=== PATIENT | male | born 1950 | race Two or more races ===

== ENCOUNTER 2018-10-09 19:47 | Inpatient (IN) | payer OTHER ==
[~2018-10-09] VITALS: Ht 172.7 cm; Wt 75.7 kg
--- NOTE | 2018-10-09 20:00 | NUR ---
started to code pt at 1945. CPR AND BAGGING INITIATED. PT INTUBATED ET secured. POSITIVE CO2 UPON EXPIRATION. BILAT LUNG SOUND HEARD. PLACED PT ON VENT ON NOTED SETTINGS. TOLD TO ADVANCE TUBE 1-2 CM. ADVANCED, RESCUED AT 24 CM LIP LINE ISELA. BS BILAT/EVEN SPO2 100%. WILL CONT TO MONITOR PT AND FOLLOW UP ON ORDERS.
--- NOTE | 2018-10-09 20:25 | NUR ---
MARINO FROM HOME. TO ER BED 11. PT IS UNCONSCIOUS, UNRESPONSIVE AND PULSELESS WITH CPR AND BAGGING ON GOING. PT WAS ORIGINALLY BROUGHT IN FOR SOB. PT ARRESTED PRIOR TO ARRIVAL. MD AT BEDSIDE. CPR CONTINUED. CODE BLUE INITIATED UPON PT ARRIVAL
[2018-10-09] MEDS ORDERED: PIPERACILLIN /TAZOBACTAM 3.375 G VIAL IV ONE (20:28)
[2018-10-09] MEDS ORDERED: IV NS 0.9% 1,000 ML BAG IV ONE (20:30)
[2018-10-09] MEDS ORDERED: PIPERACILLIN /TAZOBACTAM 3.375 G in IV D5W 50 ML IV ONE (20:30)
[2018-10-09] MEDS ORDERED: VANCOMYCIN 1 GM in IV D5W 250 ML IV ONE (20:30)
--- NOTE | 2018-10-09 20:35 | NUR ---
1944: TO ER BED 11. CODE BLUE STARTED - CPR AND BAGGGING INITITATED. PLACED ON MINITOR. NO PLULSE DETECTED. 1950: IO ACCESS OBTAINED ON L LOWER LEG 1951: EPINEPHRINE 1GM VIA IO. 1L NS STARTED ON IO 1954: PT INTUBATED ET 7.5 24 @ LIP. BILAT LUNG SOUND NO ABD GURGLING. NO CONFIRMED COLOR CHANGE ON CO2. REMOVED AND REATTEMPTED. 1957: REINTUBATED SUCCESSFULLY. NO RSI MED PROTOCOL USED. ET 7.5 26 AT LIP. POSITIVE CO2 UPON EXPIRATION. BILAT LUNG SOUND HEARD. NO GURGLING IN ABDOMEN. 2000: BI CARB GIVEN VIA IO 2002: CALCIUM 1GM VIA IO 2003: EPINEPHRINE 1MG VIA IO 2004: BI CARB GIVEN VIA IO 2007: EPINEPHRINE 1MG IO 2010: VS OBTAINED. CPR STOPED VS- HR: 121 BP: 64/45
[2018-10-09 20:43] LABS: BASOPHILS # (AUTO) 0.1 /CMM (0.0-0.2); BASOPHILS % (AUTO) 0.5 % (0.0-2.0); HEMOGLOBIN 13.4 g/dL (13.5-17.5); LYMPHOCYTES # (AUTO) 6.1 /CMM (0.8-4.8); MONOCYTES # (AUTO) 0.6 /CMM (0.1-1.30); WHITE BLOOD COUNT (AUTO) 11.5 K/uL (4.3-11.0)
--- NOTE | 2018-10-09 20:45 | NUR ---
CENTRAL LINE OBATINED ON R IJ 3 PAOLOS GABRIELE PICC NURSE
[2018-10-09 20:46] LABS: HEMATOCRIT 41 % (39-51); LYMPHOCYTES % (AUTO) 53.3 % (20.0-44.0); MEAN CORPUSCULAR HGB CONC 33 g/dl (31.0-36.0); MEAN CORPUSCULAR VOLUME 99 fL (80-96); MONOCYTES % (AUTO) 5.1 % (2.0-12.0); NEUTROPHILS # (AUTO) 4.6 /CMM (1.8-8.9); NEUTROPHILS % (AUTO) 40.1 % (43.0-81.0); PLATELET COUNT (AUTO) 94 /CMM (150-450); RED BLOOD CELL COUNT(AUTO) 4.16 MIL/uL (4.5-6.0)
[2018-10-09 20:52] LABS: CALCIUM, SERUM 11.2 mg/dL (8.5-10.1); CARBON DIOXIDE 19 mmol/L (21-32); CHLORIDE 99 mmol/L (98-107); CREATININE 1.8 mg/dL (0.6-1.3); GLUCOSE 307 mg/dL (74-106); POTASSIUM 3.1 mmol/L (3.5-5.1); SODIUM SERUM 139 mmol/L (136-145); UREA NITROGEN, BLOOD 12 mg/dL (7-18)
[2018-10-09 21:07] LABS: ALANINE AMINOTRANSFERASE 313 U/L (12-78); ALBUMIN 2.3 g/dL (3.4-5.0); ALCOHOL, BLOOD < 3 mg/dL (0-0); ALKALINE PHOSPHATASE 76 U/L (46-116); ASPARTATE AMINOTRANSFERASE 305 U/L (15-37); BILIRUBIN,DIRECT 0.2 mg/dL (0.0-0.2); BILIRUBIN,TOTAL 0.5 mg/dL (0.2-1.0); TOTAL PROTEIN, SERUM 5.6 g/dL (6.4-8.2)
[2018-10-09] MEDS ORDERED: VANCOMYCIN 1 GM VIAL ONE (21:14)
[2018-10-09 21:20] LABS: BAND % (MANUAL) 1 % (0.0-5.0); LYMPHOCYTES % (MANUAL) 41 % (16-48); MONOCYTES % (MANUAL) 5 % (0-11.0); NEUTROPHILS % (MANUAL) 51 (42-76); REACTIVE LYMPHOCYTES 2 % (0-0)
--- NOTE | 2018-10-09 21:21 | NUR ---
RT VERIFIED ET PLACEMENT 22 AT LIP. ADVANCE 2CM TO 24 AT LIP. RESP RATE INCREASED TO 20 BY RT
[2018-10-09] MEDS ORDERED: ONDANSETRON HCL/PF 4 MG/2 ML VIAL IVP PRN (21:30)
[2018-10-09] MEDS ORDERED: INSULIN REGULAR, HUMAN 100 UNIT/ML 3 ML VIAL SQ PRN ×2 (21:30)
[2018-10-09] MEDS ORDERED: MAGNESIUM HYDROXIDE 30 ML UDC PO PRN (21:30)
[2018-10-09] MEDS ORDERED: MAG HYDROX/AL HYDROX/SIMETH 30 ML UDC PO PRN (21:30)
[2018-10-09] MEDS ORDERED: DEXTROSE 50%-WATER 50 ML DISP.SYRIN IV PRN ×2 (21:30→23:30)
[2018-10-09] MEDS ORDERED: PROPOFOL 100 ML IV PRN (21:30)
[2018-10-09 21:31] LABS: ABG BASE EXCESS -18.3 mmol/L; ABG OXYGEN SATURATION 97.6 % (92.0-98.5); ABG PCO2 52.2 mmHg (35.0-45.0); ABG PO2 181.8 mmHg (75.0-100.0); COHb 0.3 % (0.5-1.5); MetHb 0.5 % (0.0-1.5); O2Hb 96.8 % (94.0-97.0); VT, ABG 500 mL
--- NOTE | 2018-10-09 21:35 | NUR ---
PPT NOTED STARTING TO WAKE UP. MD MADE AWARE. RECEIVED VERBAL ORDER FOR PROFOLOL PER PROTOCOL. STARTED ON RFA 20G @ 5MCG/KG/MIN PTS WEIGHT IS 84.6KG. BP @ 155/96 HR 133
--- NOTE | 2018-10-09 21:37 | NUR ---
PT VOMITTED STOMACH FOOD CONTENT MOD AMOUNT. SUCTIONING DONE
--- NOTE | 2018-10-09 21:50 | NUR ---
REPORT GIVEN TO GRETCHEN RYAN FOR MARNI PT GOING TO ICU 259
[2018-10-09 21:52] LABS: B-TYPE NATRIURETIC PEPTIDE 285 PG/ML (0-125)
--- NOTE | 2018-10-09 21:53 | NUR ---
CENTRAL VENOUS CATHETER INSERTION EMERGENT INSERTION, POST CARDIAC ARREST. PATIENT HAS ORDER TO INSERT CVC. INSERTION SITE DETERMINED TO BE RIGHT INTERNAL JUGULAR VEIN. patient was prepped using sterile technique with chlorhexidine. Patient was covered with a sterile drape and I donned a sterile gown. the insertion site was anesthetized with 1% lidocaine. Needle inserted under ultrasound guidance. Guidewire inserted through needle and needle removed. small kyleigh made at insertion site of approximately 2 mm. dilator inserted over guidewire then removed. catheter inserted over guidewire. guidewire removed. blood return at all 3 ports. valved caps placed on each port. catheter secured with 2 sutures. Biopatch placed and covered with Tegaderm. no s/s of complication. chest xray ordered. line positioned properly. INSERTED LENGTH 19 CM, EXTERNAL LENGTH 1 CM, TOTAL CATHETER LENGTH 20 CM.
--- NOTE | 2018-10-09 21:55 | NUR ---
PT TRANSPORTED TO UNIT ON GURNEY WITH RT, EMT, AUTO BODY CUSTOMIZER AND MEDICAL DEVICE SALES AT BEDSIDE. PT IS CRITICAL MONITORING EN ROUTE TO UNIT AND ACLS PROTOCOL OBSERVED
[2018-10-09] MEDS ORDERED: BLOOD SUGAR DIAGNOSTIC 1 EACH STRIP VI SCH (22:00)
--- NOTE | 2018-10-09 22:00 | NUR ---
PT ADMITTED FROM ER POST CARDIAC ARREST, PT IS NOW STARTING TO MOVE AND GAG ON ETT, WILL TITRATE PROPOFOL. PT IS IN SINUS TACH 130S. PICTURES TAKEN, SOME REDNESS ON HEELS, KNEES, AND SACRUM, WILL TURN AND REPOSITIONED Q2H AND OFFLOAD EXTREMITIES. PT IS ON NS @ 100 VIA RIGHT IJ TLC VERIFIED WITH CXR FOR PLACEMENT AND NO PNEUMOTHORAX. PT HAS NORTH CATHETER DRAINING MINIMAL CLOUDY URINE. PT HAS NGT TO LIS FOR COFFEE GROUND EMESIS. WILL CONTINUE TO MONITOR
[2018-10-09 22:05] VITALS: BP 134/73
[2018-10-09 22:14] LABS: THYROID STIMULATING HORMONE 8.137 uIU/mL (0.358-3.74)
[2018-10-09] MEDS: IV NS 0.9% 1,000 ML IV PRN (22:46)
[2018-10-09 23:00] VITALS: BP 148/97
--- NOTE | 2018-10-09 23:03 | NUR ---
Spoke with Dr. Coronel regarding pt critical lactic acid and pt condition. NGT placed and put to low intermittent suction for abdomen distention, tellez catheter inserted, and pt on accucheck q6 npo sliding scale. will continue to monitor
[2018-10-10] VITALS (54 sets, daily range): BP systolic 83–141; BP diastolic 51–97
[2018-10-10] MEDS: BLOOD SUGAR DIAGNOSTIC 1 EACH STRIP IN SCH ×4 (00:12→17:18)
--- NOTE | 2018-10-10 00:24 | NUR ---
Per Dr Coronel, no hypothermia protocol, will continue to monitor
[2018-10-10 01:56] LABS: ABG BASE EXCESS -9.6 mmol/L; ABG OXYGEN SATURATION 91.5 % (92.0-98.5); ABG PCO2 33.2 mmHg (35.0-45.0); ABG PH 7.293 (7.350-7.450); ABG PO2 70.5 mmHg (75.0-100.0); AaDO2 609.3 mmHg; COHb 0.6 % (0.5-1.5); MetHb 0.4 % (0.0-1.5); O2Hb 90.6 % (94.0-97.0); VT, ABG 500 mL
[2018-10-10] MEDS ORDERED: PIPERACILLIN /TAZOBACTAM 3.375 G VIAL IV ONE (02:26)
[2018-10-10] MEDS ORDERED: PIPERACILLIN /TAZOBACTAM 3.375 G in IV NS 0.9% 50 ML IV ONE (03:00)
[2018-10-10 04:45] LABS: BASOPHILS % (AUTO) 0.1 % (0.0-2.0); HEMATOCRIT 44 % (39-51); HEMOGLOBIN 14.9 g/dL (13.5-17.5); LYMPHOCYTES # (AUTO) 0.5 /CMM (0.8-4.8); LYMPHOCYTES % (AUTO) 3.7 % (20.0-44.0); MEAN CORPUSCULAR HGB CONC 34 g/dl (31.0-36.0); MEAN CORPUSCULAR VOLUME 94 fL (80-96); MONOCYTES # (AUTO) 0.5 /CMM (0.1-1.30); MONOCYTES % (AUTO) 4.1 % (2.0-12.0); NEUTROPHILS # (AUTO) 12.1 /CMM (1.8-8.9); NEUTROPHILS % (AUTO) 92.1 % (43.0-81.0); PLATELET COUNT (AUTO) 144 /CMM (150-450); RED BLOOD CELL COUNT(AUTO) 4.65 MIL/uL (4.5-6.0); WHITE BLOOD COUNT (AUTO) 13.1 K/uL (4.3-11.0)
[2018-10-10 04:48] LABS: CALCIUM, SERUM 8.9 mg/dL (8.5-10.1); CREATININE 2.3 mg/dL (0.6-1.3); MAGNESIUM 2.3 mg/dL (1.8-2.4); PHOSPHORUS 4.7 mg/dL (2.5-4.9); POTASSIUM 3.4 mmol/L (3.5-5.1)
[2018-10-10] MEDS: INSULIN REGULAR, HUMAN 100 UNIT/ML 3 ML VIAL SQ PRN ×2 (06:46→23:57)
[2018-10-10] MEDS: PROPOFOL 100 ML IV PRN ×3 (07:44→21:23)
--- NOTE | 2018-10-10 08:00 | NUR ---
RN NOTE: RECEIVED PATIENT IN BED, OBTUNDED, ON ETT 7.5 AND 24CM @THE LIP LEVEL. ON PROPOFOL 20MCG AND PATIENT WAS SEDATED. MECHANICAL VENTILATOR SATURATING 100% WITH CURRENT VENT SETTING. ON INDUSTRIAL ENERGY ENGINEER ST HR 103. AFEBRILE. SKIN WARM TO TOUCH. HOB ELEVATED. CALL LIGHT WITHIN REACH. NORTH CATHETER IN PLACED WITH YELLOW URINE DRAINING TO GRAVITY. BED ALARMED AND LOCKED AT ALL TIMES.
[2018-10-10] MEDS ORDERED: FENO145T35 PO (08:05)
[2018-10-10] MEDS ORDERED: FEE PK DOSING 1 MIN EA MC ONE (08:41)
--- NOTE | 2018-10-10 09:15 | NUR ---
INTAKE MAN OPENING NOTE RECEIVED PATIENT REPORT FROM WILLIAM GODINEZ FOR MARNI.PATIENT OBTUNDED.TRACH VENT DEPENDANT,INTUBATED.EET 7.5 24@LIP LEVEL.ON PROPOFOL 20MCG.TOLERATING SETTINGS ORDERED.NO SOB NO DISTRESS NOTED.IV LINES ARE INTACT AND PATENT.ON TELE MONITOR ST 104.SAFETY AND ASPIRATION PRECAUTIONS IN PLACE.ON INTERMITTENT OG TUBE SUCTION .DARK BROWNISH SECRETIONS .WILL CONTINUE TO MONITOR.
[2018-10-10] MEDS: PIPERACILLIN /TAZOBACTAM 3.375 G in IV D5W 100 ML IV SCH ×2 (09:23→17:18)
[2018-10-10] MEDS: IV NS 0.9% 1,000 ML IV PRN ×2 (09:32→21:49)
[2018-10-10] MEDS ORDERED: POTASSIUM CL. PREMIX PERIPHER. 50 ML IV SCH ×2 (09:34→12:30)
[2018-10-10] MEDS ORDERED: POTASSIUM CHLORIDE 10 MEQ/50 ML PREMIXED IVPB FOR PERIPHERAL LINE IV ONE (12:30)
--- NOTE | 2018-10-10 12:47 | NUR ---
BENEFIT AUTHORIZER NOTE RELAYED POSITIVE DVT RESULT TO ,GOT NEW ORDER FOR LOVENOX AND CARDIOLOGY WILL F/U IN AM.
[2018-10-10] MEDS: ENOXAPARIN SODIUM 80 MG/0.8 ML DISP.SYRIN SQ SCH ×2 (13:12→21:33)
[2018-10-10 14:19] LABS: APPEARANCE,URINE SL CLOUDY (CLEAR); BILIRUBIN,URINE NEGATIVE (NEGATIVE); BLOOD, URINE 3+ Ery/uL (NEGATIVE); COLOR,URINE YELLOW (YELLOW); KETONES,URINE TRACE (NEGATIVE); LEUKOCYTE ESTERASE ,URINE NEGATIVE (NEGATIVE); NITRITE, URINE NEGATIVE (NEGATIVE); PH,URINE 5.5 (5.0-8.0); PROTEIN,URINE 1+ mg/dl (NEGATIVE); UGLUCOSE NEGATIVE (NEGATIVE)
[2018-10-10 14:27] LABS: CREATININE, URINE 153.2 MG/DL (30.0-125.0)
[2018-10-10 14:44] LABS: BACTERIA,URINE Few /HPF (None Seen); CALCIUM OXALATE CRYSTALS,UR Few /HPF (None Seen); SQUAMOUS EPITHELIAL CELL,UR Few /HPF (None Seen); URIC ACID CRYSTALS,URINE Moderate /HPF (None Seen)
[2018-10-10] MEDS ORDERED: CALCIUM CHLORIDE 1,000 MG/10 ML DISP.SYRIN IV ONE (14:44)
[2018-10-10] MEDS ORDERED: SODIUM BICARBONATE SYR 50 MEQ/50 ML DISP.SYRIN IV ONE (14:44)
[2018-10-10] MEDS ORDERED: EPINEPHRINE (1:10,000) SYRINGE 1 MG/10 ML DISP.SYRIN IVP ONE (14:44)
[2018-10-10 14:45] LABS: URINE AMORPHOUS URATE Moderate /HPF (None Seen)
[2018-10-10 15:12] LABS: EOSINOPHIL,URINE None Seen
[2018-10-10] MEDS: ACETAMINOPHEN 325 MG TABLET PO PRN (17:18)
--- NOTE | 2018-10-10 18:52 | NUR ---
ACCOUNTING ASSOCIATE CLOSING NOTE .PATIENT OBTUNDED.TRACH VENT DEPENDANT,INTUBATED.ET 7.5 24@LIP LEVEL.TOLERATING SETTINGS ORDERED.NO SOB NO DISTRESS NOTED.IV LINES ARE INTACT AND PATENT.ON TELE MONITOR SR 98.SAFETY AND ASPIRATION PRECAUTIONS IN PLACE.ON INTERMITTENT OG TUBE SUCTION .DARK BROWNISH SECRETIONS .PATIENT HAS ELEVATED TEMP 101.1.PRN TYLENOL GIVEN WITH COOLING BLANKET. MADE AWARE.LEFT MESSAGE.LOVENOX DOSE CLARIFIED WITH PHARMACY .DOSE IS OK EVEN RENAL VALUES ARE HIGH .BECAUSE OF INDICATION OF THERAPY.WILL CONTINUE TO MONITOR.
--- NOTE | 2018-10-10 19:30 | NUR ---
ICU NOTES RECEIVED REPORT FROM DAY SHIFT R.N.PT INTUBATED,ON DIPRIVAN DRIP AT 20MCG/KG/MIN.VIA RT.IJ.MONITOR SHOWS NSR.
--- NOTE | 2018-10-10 20:11 | NUR ---
RECEIVED PT INTUBATED 7.5 ETT SECURED AT 24CM AT THE LIP VIA ANCHOR FAST. NO RESP DISTRESS, TOLERATING VENT SETTINGS. SX'D FOR SML AMT OF THIN WHITE SECRETIONS. VENT ALARMS SET AND AUDIBLE. AMBU BAG AT BEDSIDE. WILL CONTINUE TO MONITOR. Addendum: 10/10/18 at 2013 by CADE SHAH RT Amended: Links added.
[2018-10-10] MEDS ORDERED: VANCOMYCIN 1 GM in IV D5W 250 ML IV SCH (21:00)
--- NOTE | 2018-10-10 22:00 | NUR ---
ICU NOTES OROGASTRIC TUBE TO LOW INTERMITTENT SUCTION DRAINING COFFEE GROUND TO BROWN DRAINAGE.
[2018-10-11] VITALS (53 sets, daily range): BP systolic 73–130; BP diastolic 27–83
--- NOTE | 2018-10-11 | NUR ---
ICU NOTES REMAINS ON DIPRIVAN DRIP.VITAL SIGNS STABLE.MONITOR SHOWS NSR.REPOSITIONED AND TURNED.INCONTINENT OF SCANT AMOUNT BROWN STOOL
[2018-10-11] MEDS: BLOOD SUGAR DIAGNOSTIC 1 EACH STRIP IN SCH ×5 (00:07→23:46)
[2018-10-11] MEDS: PIPERACILLIN /TAZOBACTAM 3.375 G in IV D5W 100 ML IV SCH ×3 (00:55→17:09)
[2018-10-11] MEDS: PROPOFOL 100 ML IV PRN ×3 (04:21→20:45)
[2018-10-11 04:59] LABS: BASOPHILS % (AUTO) 0.2 % (0.0-2.0); EOSINOPHILS % (AUTO) 0.1 % (0.0-6.0); HEMATOCRIT 34 % (39-51); HEMOGLOBIN 12.1 g/dL (13.5-17.5); LYMPHOCYTES # (AUTO) 1.3 /CMM (0.8-4.8); LYMPHOCYTES % (AUTO) 8.6 % (20.0-44.0); MEAN CORPUSCULAR HGB CONC 36 g/dl (31.0-36.0); MEAN CORPUSCULAR VOLUME 92 fL (80-96); MONOCYTES # (AUTO) 0.7 /CMM (0.1-1.30); MONOCYTES % (AUTO) 4.8 % (2.0-12.0); NEUTROPHILS # (AUTO) 12.7 /CMM (1.8-8.9); NEUTROPHILS % (AUTO) 86.3 % (43.0-81.0); PLATELET COUNT (AUTO) 124 /CMM (150-450); RED BLOOD CELL COUNT(AUTO) 3.64 MIL/uL (4.5-6.0); WHITE BLOOD COUNT (AUTO) 14.7 K/uL (4.3-11.0)
[2018-10-11 05:02] LABS: CALCIUM, SERUM 8.1 mg/dL (8.5-10.1); CREATININE 2.8 mg/dL (0.6-1.3); MAGNESIUM 1.9 mg/dL (1.8-2.4); PHOSPHORUS 3.7 mg/dL (2.5-4.9); POTASSIUM 3.5 mmol/L (3.5-5.1)
--- NOTE | 2018-10-11 07:20 | NUR ---
BOX COVERER HAND INITIAL NOTES PT RECEIVED ON VENT AND TOLERATING SETTING SWELL. NO SOB OR ACUTE SIGNS IF DISTRESS NOTED. BREATHING IS EVEN AND UNLABORED. VSS AT THIS TIME. INVASIVE A CENTRAL LINE NOTED TO BE C/D/I. NO REDNESS OR SIGNS OF INFILTRATION NOTED. OG TUBE NOTED TO LIS. COFFEE GROUND CONTENTS NOTED. PLACEMENT VERIFIED VIA AUSCULTATION. F/C C/D/I AND DRAINING TO GRAVITY. BED IN LOW LOCKED POSITION, SIDE RAILS UP X2. WILL CONTINUE TO MONITOR
[2018-10-11] MEDS: ENOXAPARIN SODIUM 80 MG/0.8 ML DISP.SYRIN SQ SCH (08:56)
[2018-10-11 08:59] LABS: ALBUMIN 2.2 g/dL (3.4-5.0); BILIRUBIN,TOTAL 0.7 mg/dL (0.2-1.0); CALCIUM, SERUM 7.9 mg/dL (8.5-10.1); POTASSIUM 3.5 mmol/L (3.5-5.1); TOTAL PROTEIN, SERUM 5.4 g/dL (6.4-8.2)
[2018-10-11] MEDS ORDERED: PANTOPRAZOLE 40 MG VIAL IV SCH (10:30)
[2018-10-11] MEDS: NEXIUM 40 MG VIAL IV SCH ×2 (12:29→20:16)
[2018-10-11] MEDS ORDERED: HEPARIN INFUSION/D5W 500 ML IV PRN (12:30)
[2018-10-11] MEDS: ALBUMIN 25% 25 GM in PREMIX 1 EA IV SCH ×2 (12:46→18:11)
--- NOTE | 2018-10-11 13:00 | NUR ---
CROP GRAIN OR LIVESTOCK FARMER NOTES: PERSON TO CONTACT PT'S BROTHER RIYA MCCABE AT BEDSIDE. IDENTIFICATION CONFIRMED VIA CASINO ENFORCEMENT AGENT'S LICENSE. [phone]
--- NOTE | 2018-10-11 14:00 | NUR ---
CUSTOMER SERVICE ADVISOR NOTES: HEPARIN INFUSION ORDER NOTED FROM ENGINE OILER MAGANA TO BEGIN HEPARIN DRIP. ENGINE OILER MADE AWARE THAT COFFEE GROUND GASTRIC CONTENTS ARE STILL WITNESSED FROM OJ TUBE, ALONG WITH BLOOD TINGED SPUTUM WHEN PT IS SUCTIONED, AND PREVIOUS ADMINISTRATION OF SQ LOVENOX. PER ENGINE OILER "BEGIN THE INFUSION. NO BOLUS NEEDED AND ASSESS FOR ANY SIGNS OF BLEEDING".
[2018-10-11 14:17] LABS: IRON, SERUM 18 ug/dl (50-175); TOTAL IRON BINDING CAPACITY 176 ug/dl (250-450)
[2018-10-11 14:51] LABS: FERRITIN 2203 ng/mL (8-388)
[2018-10-11] MEDS: IV NS 0.9% 1,000 ML IV PRN (16:08)
[2018-10-11 17:27] LABS: OCCULT BLOOD STOOL POSITIVE (NEGATIVE)
--- NOTE | 2018-10-11 17:54 | NUR ---
RT END OF THE SHIFT REPORT, PT 67 Y OLD MALE REMAIN ORALLY INTUBATED ETT #7.5 @ 24 CM LIP LINE WITH NOTED SETTINGS, ALARMS ARE SET AND FUNCTIONAL, B/S BILATERALLY FINE, EQUAL CHEST RISE NOTED. MINIMAL SECRETIONS, HME CHANGED, CARBONATING STONE CLEANER DONE, NO CHANGES T/O DAY, AMBU BAG REMAIN AT THE BEDSIDE. PT. REMAIN STABLE AND FAMILY MEMBERS AT TH BEDSIDE. WILL CONTINUE TO MONITOR. Addendum: 10/11/18 at 1756 by NAYELY DORAN RT Amended: Links added.
--- NOTE | 2018-10-11 18:00 | NUR ---
PNEUMATIC JACKETER NOTES: INTENSIVE CARE UNIT REGISTERED NURSE RN NOTES (BENNY) INTENSIVE CARE UNIT REGISTERED NURSE AT BEDSIDE AND MADE AWARE OF PT'S CONDITION AND SUSTAINED TEMP DESPITE COOLING MEASURES. ORDER OBTAINED TO COLLECT SPUTUM CX. RT NOTIFIED TO CARRY OUT ORDER
[2018-10-11] MEDS: Z GUARD REMEDY 2 OZ OINT TP PRN (18:11)
[2018-10-11] MEDS: ACETAMINOPHEN 325 MG TABLET PO PRN (18:12)
[2018-10-11 18:26] LABS: HEMOGLOBIN 10.4 g/dL (13.5-17.5)
--- NOTE | 2018-10-11 18:41 | NUR ---
ROUTER TENDER NOTES: + OB STOOL PT SCHEDULED FRO EGD TOMORROW MORNING AT 10. KAI ROOFER APPLICATOR MADE AWARE OF PT'S CURRENT DROP IN H/H AND POSITIVE OB STOOL. ORDERS NOTED TO HOLD HEPARIN INFUSION
--- NOTE | 2018-10-11 18:51 | NUR ---
WEATHERIZATION CREW LEADER CLOSING NOTES PT REMAINS ON VENT AND TOLERATING SETTING WELL. NO SOB OR ACUTE SIGNS OF DISTRESS NOTED. BREATHING EVEN AND UNLABORED. HEPARIN DRIP STOPPED PER ENGINE SERVICE REPAIRER ORDER. NO OVERT SIGNS OF BLEEDING NOTED AT THIS TIME. INVASIVE LINE AND CENTRAL LINE REMAIN C/D/I. F/C REMAINS C/D/I AND DRAINING TO GRAVITY. HE REMAINS SR ON THE MONITOR. SAFETY MEASURES REMAIN IN PLACE. WILL ENDORSE TO NIGHTSHIFT RN FOR MARNI CALL PLACED TO PT'S BROTHER RIYA FOR EGD CONSENTS, HOWEVER UNABLE TO REACH HIM. VOICEMAIL LEFT
--- NOTE | 2018-10-11 23:05 | NUR ---
SKATING RINK ICE MAKER NOTE PATIENT IN BED OBTUNDED ABLE TO OPEN EYES UNABLE TO FOLLOW COMMANDS. PATIENT ON TOLERATED VENT SETTINGS BREATHING EVEN AND UNLABORED NO S/S OF RESP DISTRESS. PATIENT ON LOW INTERMITTENT SUCTION WITH BILIOUS DRAINAGE NOTED. NO S/S OF OVERT BREATHING. PATIENT TURNED AND REPOSITIONED ORAL CARE GIVEN. PATIENT NOTED TO HAVE MILD TEMP. COOLING BLANKET AND MEASURES IN PLACE. PATIENT F/C DRAINING TO GRAVITY NO S/S OF BLEEDING SAFETY PRECAUTIONS IN PLACE RN WILL CONTINUE TO MONITOR FOR CHANGES.
[2018-10-12] VITALS (37 sets, daily range): BP systolic 91–131; BP diastolic 50–78
[2018-10-12] MEDS: PIPERACILLIN /TAZOBACTAM 3.375 G in IV D5W 100 ML IV SCH ×3 (00:04→16:54)
[2018-10-12] MEDS: ALBUMIN 25% 25 GM in PREMIX 1 EA IV SCH (03:03)
[2018-10-12 04:50] LABS: BASOPHILS # (AUTO) 0.1 /CMM (0.0-0.2); BASOPHILS % (AUTO) 0.5 % (0.0-2.0); EOSINOPHILS % (AUTO) 0.8 % (0.0-6.0); HEMATOCRIT 26 % (39-51); HEMOGLOBIN 9.5 g/dL (13.5-17.5); LYMPHOCYTES # (AUTO) 1.3 /CMM (0.8-4.8); LYMPHOCYTES % (AUTO) 12.5 % (20.0-44.0); MEAN CORPUSCULAR HGB CONC 36 g/dl (31.0-36.0); MEAN CORPUSCULAR VOLUME 93 fL (80-96); MONOCYTES # (AUTO) 0.5 /CMM (0.1-1.30); MONOCYTES % (AUTO) 4.6 % (2.0-12.0); NEUTROPHILS # (AUTO) 8.6 /CMM (1.8-8.9); NEUTROPHILS % (AUTO) 81.6 % (43.0-81.0); PLATELET COUNT (AUTO) 119 /CMM (150-450); RED BLOOD CELL COUNT(AUTO) 2.83 MIL/uL (4.5-6.0); WHITE BLOOD COUNT (AUTO) 10.6 K/uL (4.3-11.0)
[2018-10-12 05:08] LABS: ALBUMIN 3.1 g/dL (3.4-5.0); BILIRUBIN,TOTAL 0.8 mg/dL (0.2-1.0); CALCIUM, SERUM 7.9 mg/dL (8.5-10.1); CREATININE 2.8 mg/dL (0.6-1.3); MAGNESIUM 2.2 mg/dL (1.8-2.4); PHOSPHORUS 3.5 mg/dL (2.5-4.9); POTASSIUM 3.3 mmol/L (3.5-5.1)
[2018-10-12] MEDS: PROPOFOL 100 ML IV PRN ×3 (05:42→22:38)
[2018-10-12] MEDS: IV NS 0.9% 1,000 ML IV PRN (06:10)
[2018-10-12] MEDS: BLOOD SUGAR DIAGNOSTIC 1 EACH STRIP IN SCH ×4 (06:10→23:52)
--- NOTE | 2018-10-12 06:52 | NUR ---
GAS DISPATCHER NOTE PATIENT TOLERATED THE NIGHT WELL. PATIENT REMAINED WITH MINOR FEVER ALL NIGHT, COOLING BLANKET AND MEASURES IN PLACE. PATIENT RIJ TLC PATENT INTACT NO S/S OF INFECTION/ INFILTRATION, PHLEBITIS. PATIENT TOLERATING VENT SETTINGS WELL NO S/S OF RESP DISTRESS. SPOKE TO OR REGARDING PATIENTS SCHEDULED EGD AT BEDSIDE AT 1000. RN WILL ENDORSE POC TO AM FOR MARNI.
--- NOTE | 2018-10-12 07:15 | NUR ---
COTTON BALER OPENING NOTE RECEIVED PATIENT REPORT FROM PM RN .PATIENT OBTUNDED.TRACH VENT DEPENDANT,INTUBATED.EET 7.5 24@LIP LEVEL.ON PROPOFOL 20MCG.TOLERATING SETTINGS ORDERED.NO SOB NO DISTRESS NOTED.IV LINES ARE INTACT AND PATENT.ON TELE MONITOR SR HR 96.SAFETY AND ASPIRATION PRECAUTIONS IN PLACE.ON INTERMITTENT OG TUBE SUCTION .GREENISH SECRETIONS .WILL CONTINUE TO MONITOR.
[2018-10-12] MEDS: NEXIUM 40 MG VIAL IV SCH ×2 (08:48→20:48)
[2018-10-12 08:53] LABS: ABG BASE EXCESS -2.5 mmol/L; ABG OXYGEN SATURATION 96.6 % (92.0-98.5); ABG PCO2 30.8 mmHg (35.0-45.0); ABG PH 7.448 (7.350-7.450); ABG PO2 99.3 mmHg (75.0-100.0); AaDO2 150.5 mmHg; COHb 0.3 % (0.5-1.5); MetHb 0.3 % (0.0-1.5); SITE, ABG Right Radial
[2018-10-12] MEDS ORDERED: ENOXAPARIN SODIUM 80 MG/0.8 ML DISP.SYRIN SQ SCH (09:00)
--- NOTE | 2018-10-12 09:30 | NUR ---
EMAIL MARKETING EXECUTIVE NOTE SEEN BY EBONIE GARRETT,UPDATED ABOUT PATIENT CONDITION.WILL F/U WITH FOR PLANNING OF IVC FILTER INSERTION.
--- NOTE | 2018-10-12 10:00 | NUR ---
ATTENDANT LODGING FACILITIES NOTE GOT CALL FROM ,UPDATED ABOUT PATIENT CONDITION.TOLD THAT DEPENDS ON EGD RESULT WILL PLAN IVC FILTER OR ANTICOAGULATION.
--- NOTE | 2018-10-12 10:00 | NUR ---
AUTOMOTIVE PRODUCTION WORKER NOTE SEEN BY ,TO START ON SEDATION VACATION.PATIENT WAS NOT TOLERATING TACHYPNEIC.PLACED BACK ON PROPOFOL.WILL CONTINUE TO MONITOR.
--- NOTE | 2018-10-12 10:45 | NUR ---
TRACK SWEEPER NOTE EGD DONE BY .PATIENT IS STABLE.NO ACUTE BLEEDING.FINDING WAS ESOPHAGITIS,GASTRITIS,DUODENITIS.RELAYED EGD RESULT TO [place] FARMER TAMI ,MADE AWARE RECOMMENDATION AND PLAN OF CARE.HE SAID HE WILL LET ME KNOW FURTHER PLANNING AFTER HE TALK TO .
[2018-10-12 13:22] LABS: HEMOGLOBIN 9.1 g/dL (13.5-17.5)
--- NOTE | 2018-10-12 13:30 | NUR ---
SKILLED HELPER NOTE SEEN BY ,UPDATED ABOUT PATIENT CONDITION,GOT NEW ORDER TO GIVE POTASSIUM 20MEQ IV .WILL CONTINUE TO MONITOR.
[2018-10-12] MEDS ORDERED: POTASSIUM CHLORIDE 10 MEQ/50 ML PREMIXED IVPB FOR PERIPHERAL LINE IV ONE (14:00)
[2018-10-12] MEDS: POTASSIUM CL. PREMIX PERIPHER. 50 ML IV SCH ×2 (14:25→15:35)
--- NOTE | 2018-10-12 14:56 | NUR ---
MARKET DEVELOPMENT TRAINER NOTE SPOKE TO ,IVC FILTER PLACEMENT ON 10/13/2018 @0630.AUTO BODY REPAIR ESTIMATOR TAMI MADE AWARE.SPOKE TO BROTHER RIYA OLIVER ,GOT CONSENT FOR PROCEDURE AND ANESTHESIA.WITNESSED BY BECKY GODINEZ. PER BROTHER HE DONT HAVE ANY OTHER FAMILY MEMBER TO MAKE DECISION FOR HIM.EITHER HE OR HIS YOUNGER BROTHER.
[2018-10-12] MEDS: ACETAMINOPHEN 325 MG TABLET PO PRN (16:55)
--- NOTE | 2018-10-12 18:12 | NUR ---
PERSONAL INJURY LAW SPECIALIST NOTE SEEN BY EBONIE QUINN,GOT NEW ORDER TO D/C INTERMITTENT OG TUBE SUCTION AND DIETITIAN CONSULT FOR TUBE FEEDING.UPDATED ABOUT PATIENT CONDITION.
--- NOTE | 2018-10-12 19:22 | NUR ---
LEGAL EXECUTIVE CLOSING NOTE .PATIENT OBTUNDED.OPEN EYES.TRACKS.TRACH VENT DEPENDANT,INTUBATED.EET 7.5 24@LIP LEVEL.ON PROPOFOL 15MCG.TOLERATING SETTINGS ORDERED.NO SOB NO DISTRESS NOTED.IV LINES ARE INTACT AND PATENT.ON TELE MONITOR SR HR 92.SAFETY AND ASPIRATION PRECAUTIONS IN PLACE.ENDORSED TO PM NURSE FOR MARNI.
--- NOTE | 2018-10-12 19:52 | NUR ---
REPAIRING CALIBRATOR OPENING NOTES RECEIVED REPORT FROM BARBARA GODINEZ. PATIENT OBTUNDED W/ ETT IN PLACE & TOLERATING VENT SETTINGS AC 20, TV 500, FIO2 40%, PEEP 5. NO RESPIRATORY DISTRESS NOTED, SATING WELL @ 99%. ON TELE W/ SINUS RHYTHM, HR 80S. LEFT & RIGHT WRIST IV #20 INTACT & PATENT, SALINE LOCKED & RIGHT TLC IJ W/ DRESSING CDI & ONGOING DIPRIVAN DRIP @ 15 MCG/HR. OG TUBE FLUSHING WELL W/ GTF @ THIS TIME D/T NPO STATUS. NORTH CATH DRAINING YELLOW URINE. NO S/S OF PAIN OR DISCOMFORT @ THIS TIME. SAFETY MEASURES IN PLACE W/ SIDE RAILS UP & BED ALARM ON. WILL CONTINUE TO MONITOR CLOSELY.
[2018-10-12 21:01] LABS: HEMOGLOBIN 9.4 g/dL (13.5-17.5)
[2018-10-12] MEDS: INSULIN REGULAR, HUMAN 100 UNIT/ML 3 ML VIAL SQ PRN (23:52)
[2018-10-13] VITALS (41 sets, daily range): BP systolic 95–162; BP diastolic 56–90
--- NOTE | 2018-10-13 00:06 | NUR ---
RECEIVED PT INTUBATED 7.5 ETT SECURED AT 24CM AT THE LIP VIA ANCHOR FAST ON MECHANICAL VENT WITH CHARTED SETTINGS. NO RESP DISTRESS NOTED. PT TOLERATING VENT SETTINGS WELL. SX DONE. VENT ALARMS SET AND AUDIBLE. AMBU BAG AT BEDSIDE. VENT PLUGGED INTO RED OUTLET. WILL CONTINUE TO MONITOR. Addendum: 10/13/18 at 0008 by DARLEEN MALONEY RT Amended: Links added.
[2018-10-13] MEDS: PIPERACILLIN /TAZOBACTAM 3.375 G in IV D5W 100 ML IV SCH ×3 (00:34→16:30)
[2018-10-13] MEDS: ACETAMINOPHEN 325 MG TABLET PO PRN (01:51)
[2018-10-13 04:33] LABS: BASOPHILS % (AUTO) 0.5 % (0.0-2.0); EOSINOPHILS % (AUTO) 3.3 % (0.0-6.0); HEMATOCRIT 27 % (39-51); HEMOGLOBIN 9.8 g/dL (13.5-17.5); LYMPHOCYTES # (AUTO) 0.9 /CMM (0.8-4.8); MEAN CORPUSCULAR HGB CONC 36 g/dl (31.0-36.0); MEAN CORPUSCULAR VOLUME 94 fL (80-96); MONOCYTES # (AUTO) 0.5 /CMM (0.1-1.30); MONOCYTES % (AUTO) 5.6 % (2.0-12.0); NEUTROPHILS # (AUTO) 6.8 /CMM (1.8-8.9); NEUTROPHILS % (AUTO) 79.6 % (43.0-81.0); PLATELET COUNT (AUTO) 144 /CMM (150-450); RED BLOOD CELL COUNT(AUTO) 2.93 MIL/uL (4.5-6.0); WHITE BLOOD COUNT (AUTO) 8.5 K/uL (4.3-11.0)
[2018-10-13 04:40] LABS: CALCIUM, SERUM 8.2 mg/dL (8.5-10.1); CREATININE 2.6 mg/dL (0.6-1.3); POTASSIUM 3.4 mmol/L (3.5-5.1)
[2018-10-13] MEDS: PROPOFOL 100 ML IV PRN ×5 (04:54→23:58)
[2018-10-13] MEDS: BLOOD SUGAR DIAGNOSTIC 1 EACH STRIP IN SCH ×4 (05:56→23:55)
[2018-10-13] MEDS: INSULIN REGULAR, HUMAN 100 UNIT/ML 3 ML VIAL SQ PRN (05:57)
[2018-10-13] MEDS ORDERED: ANESTHESIA TRAY IN PYXIS 1 EA TRAY MC ONE (06:35)
[2018-10-13] MEDS ORDERED: LIDOCAINE /MPF 1% VIAL 5 ML VIAL ONE ×2 (06:35→07:13)
[2018-10-13] MEDS ORDERED: HEPARIN SODIUM, PORCINE 1,000 UNIT/ML VIAL ONE (06:36)
[2018-10-13] MEDS ORDERED: MIDAZOLAM HCL 2 MG/2ML VIAL ONE (06:41)
[2018-10-13] MEDS ORDERED: FENTANYL PF 100MCG/2ML AMPUL ONE (06:41)
[2018-10-13] MEDS ORDERED: ROCURONIUM BROMIDE 50 MG/5 ML ONE (06:42)
[2018-10-13] MEDS ORDERED: FAMOTIDINE/PF INJ 20 MG/2 ML VIAL IV ONE (06:42)
[2018-10-13] MEDS ORDERED: IOHEXOL 50 ML IV ONE (07:17)
--- NOTE | 2018-10-13 07:37 | NUR ---
ICU/RN: S/P IVC Filter Placement Pt received from OR accompanied by Dr Byrd, anesthesiologist and OR staff. Pt received intubated, tachypneic, with O2 sat in 80's currently being bagged by RT. Pt repositioned and HOB elevated with gradual return to 100% saturation. Placed on mechanical vent 100 FiO2. Pt currently off Diprivan, resumed sedation at previous rate as ordered. R femoral IVC filter dressing C/D/I. Post-op orders from Dr Gill noted and carried out.
--- NOTE | 2018-10-13 08:15 | NUR ---
ICU/RN: Reza Thompson, BUZZSAW OPERATOR at bedside; updated on pt status. Informed of respiratory distress post-op, ABG pending. + corneal, gag, cough reflexes, currently sedated on Diprivan. Notified of bilat forearm rash. No new orders. Photographed and placed in chart.
[2018-10-13] MEDS: NEXIUM 40 MG VIAL IV SCH ×2 (08:20→21:02)
[2018-10-13 08:35] LABS: ABG BASE EXCESS -7.7 mmol/L; ABG OXYGEN SATURATION 98.4 % (92.0-98.5); ABG PCO2 45.7 mmHg (35.0-45.0); ABG PH 7.245 (7.350-7.450); ABG PO2 216.6 mmHg (75.0-100.0); AaDO2 450.7 mmHg; COHb 0.3 % (0.5-1.5); MetHb 0.7 % (0.0-1.5); O2Hb 97.4 % (94.0-97.0); SITE, ABG Left Brachial; VENT MODE, BG AC 20 500 100% +5
--- NOTE | 2018-10-13 09:00 | NUR ---
ICU/RN: Dr Claudine rebolledo; updated on pt status. ABGs reported by RT. Orders for vent changes noted and carried out. Unable to perform full neuro assessment on sedation vacation due to noted respiratory distress, increased WOB off Diprivan; unable to follow commands.
[2018-10-13] MEDS: POTASSIUM CL. PREMIX PERIPHER. 50 ML IV SCH ×2 (09:30→10:31)
[2018-10-13] MEDS: Z GUARD REMEDY 2 OZ OINT TP PRN (12:04)
--- NOTE | 2018-10-13 14:54 | NUR ---
RT NOTE: PER MD ORDER PUSHED ETT INWARD 2 CM. NO COMPLICATIONS NOTED. BILATERAL BS NOTED. ETT NOW @ 26 CM @ LIPLINE. Addendum: 10/13/18 at 1457 by MARII DASILVA RT Amended: Links added.
--- NOTE | 2018-10-13 15:30 | NUR ---
ICU/RN: Gradual temp increase noted up to 100.0F; bed bath given, cooling measures in place. Wound care rendered. Pt tolerated well.
[2018-10-13] MEDS: SUCRALFATE 1 G/10 ML UDC PO SCH ×2 (16:32→22:11)
[2018-10-13] MEDS: JEVITY 1.2 CAL 1,000 ML BOTTLE GT PRN (17:02)
--- NOTE | 2018-10-13 17:30 | NUR ---
ICU/RN: S/B Ria, PRINCIPAL ARCHITECT in for ID consult. Informed of T-max 100.0F, S/P IVC filter placement, bilat FA rash. Per PRINCIPAL ARCHITECT, "not infectious, not allergic reaction." Pt with hx of psoriasis.
--- NOTE | 2018-10-13 18:15 | NUR ---
ICU/RN: Kat, ANIMAL CARE SUPERVISOR at bedside for GI consult; updated on pt status. Currently on TF, no black tarry stools, coffee ground emesis; aspiration of OGT with bileous output.
[2018-10-13 18:46] LABS: HEMOGLOBIN 9.6 g/dL (13.5-17.5)
--- NOTE | 2018-10-13 19:00 | NUR ---
AIRFRAME AND POWERPLANT TECHNICIAN NOTES RECEIVED PATIENT ORALLY INTUBATED TO THE VENTILATOR ON AC MODE,NOT IN NAY DISTRESS, BREATHING NON LABORED,SEDATED WITH PROPOFOL DRIP . MODERATELY SEDATED ( RASS=2), RESPONDS TO DEEP PAIN ,+ COUGH AND GAG REFLEX WHEN SUCTIONED,SLIGHTLY WITHDRAWS EXTREMITIES,SLIGHTLY BLINKS EYES TO PAIN. TRIPLE LUMEN CATHETER @ RIGHT IJ.+ EDEMA OF EXTREMITIES. S/P IVC FILTER INSERTION (VIA RIGHT GROIN APPROACH) SITE WITH DRESSING ,NO BLEEDING,NO HEMATOMA NOTED. COMFORT CARE DONE.WILL CLOSELY MONITOR.ADVANCE TUBE FEEDING TOLERATED (NOW AT 20 ML/HR),GOAL 45 ML/HR.ASPIRATION PRECAUTION IMPLEMENTED.
--- NOTE | 2018-10-13 19:51 | NUR ---
PATIENT RECEIVED ORALLY INTUBATED WITH 7.5 ET TUBE SECURED @ 26 CM LIP LINE. VENT SETTINGS: AC 20, 550, 50%, PEEP 5. PT IS SEDATED ,RESPONDS TO STIMULI WHEN SUCTION. ET TUBE SECURED AND PATENT. VENT PLUGGED TO RED OUTLET. ALARMS ON AND AUDIBLE. SUCTIONED SMALL AMOUNT OF BROWN THICK SECRETIONS. WILL CONTINUE TO MONITOR CLOSELY.
[2018-10-14] VITALS (39 sets, daily range): BP systolic 105–155; BP diastolic 44–95
--- NOTE | 2018-10-14 | NUR ---
PATIENT NOTED TO BE WAKING UP MORE OFTEN, COUGHING,GAGGING,,GETTING A LITTLE TACHYPNEIC WITH RR=26-30,AND BREATHING MORE LABORED. INCREASED PROPOFOL DRIP TO 35 MCG/KG/MIN.
[2018-10-14] MEDS: INSULIN REGULAR, HUMAN 100 UNIT/ML 3 ML VIAL SQ PRN (00:06)
[2018-10-14] MEDS: PIPERACILLIN /TAZOBACTAM 3.375 G in IV D5W 100 ML IV SCH ×3 (01:17→16:05)
--- NOTE | 2018-10-14 02:00 | NUR ---
MORE CALM,STILL COUGHING OCCASIONALLY BUT LESSER AND BREATHING NON LABORED,LOOKS MORE COMFORTABLE.VITAL SIGNS STABLE. WILL MAINTAIN PROPOFOL DRIP AT 35 MCG. 0300 AM CARE DONE,
--- NOTE | 2018-10-14 03:20 | NUR ---
FIO2 DECREASED TO 40 %.
[2018-10-14 04:33] LABS: BASOPHILS # (AUTO) 0.1 /CMM (0.0-0.2); BASOPHILS % (AUTO) 0.7 % (0.0-2.0); EOSINOPHILS % (AUTO) 4.1 % (0.0-6.0); HEMATOCRIT 28 % (39-51); HEMOGLOBIN 9.8 g/dL (13.5-17.5); LYMPHOCYTES # (AUTO) 0.7 /CMM (0.8-4.8); LYMPHOCYTES % (AUTO) 9.8 % (20.0-44.0); MEAN CORPUSCULAR HGB CONC 35 g/dl (31.0-36.0); MEAN CORPUSCULAR VOLUME 93 fL (80-96); MONOCYTES # (AUTO) 0.5 /CMM (0.1-1.30); MONOCYTES % (AUTO) 6.7 % (2.0-12.0); NEUTROPHILS % (AUTO) 78.7 % (43.0-81.0); PLATELET COUNT (AUTO) 182 /CMM (150-450); RED BLOOD CELL COUNT(AUTO) 3.03 MIL/uL (4.5-6.0); WHITE BLOOD COUNT (AUTO) 7.6 K/uL (4.3-11.0)
[2018-10-14] MEDS: PROPOFOL 100 ML IV PRN ×6 (04:36→20:37)
[2018-10-14 04:38] LABS: CALCIUM, SERUM 7.9 mg/dL (8.5-10.1); CREATININE 2.3 mg/dL (0.6-1.3); POTASSIUM 3.6 mmol/L (3.5-5.1)
--- NOTE | 2018-10-14 06:00 | NUR ---
FEBRILE ,JJMO=657.2,COOLING MEASYRES DONE,ICE PACKS APPLIED.TYLENOL 650 MG. GIVEN.
[2018-10-14] MEDS: BLOOD SUGAR DIAGNOSTIC 1 EACH STRIP IN SCH ×3 (06:18→17:00)
[2018-10-14] MEDS: ACETAMINOPHEN 325 MG TABLET PO PRN (06:23)
--- NOTE | 2018-10-14 07:00 | NUR ---
REPORT GIVEN TO CHUCHO GODINEZ.PATIENT REMAINS FEBRILE,STILL INTUBATED,SEDATED.PROPOFOL NOW @ 35 MCG/KG/MIN
--- NOTE | 2018-10-14 08:00 | NUR ---
ICU/RN: Pt continues to be febrile; cooling blanket placed. VSS.
[2018-10-14] MEDS: NEXIUM 40 MG VIAL IV SCH ×2 (08:14→20:42)
[2018-10-14] MEDS: SUCRALFATE 1 G/10 ML UDC PO SCH ×4 (08:15→21:18)
[2018-10-14 08:59] LABS: ABG BASE EXCESS -5.1 mmol/L; ABG OXYGEN SATURATION 96.6 % (92.0-98.5); ABG PCO2 31.7 mmHg (35.0-45.0); ABG PH 7.393 (7.350-7.450); ABG PO2 98.2 mmHg (75.0-100.0); AaDO2 150.5 mmHg; COHb 0.3 % (0.5-1.5); MetHb 0.5 % (0.0-1.5); O2Hb 95.8 % (94.0-97.0); SITE, ABG Right Radial; VENT MODE, BG AC 20 550 40% +5; VT, ABG 550 mL
--- NOTE | 2018-10-14 09:20 | NUR ---
ICU/RN: Dr Chow at bedside; updated on pt status. Pt febrile. Currently on Diprivan 35mcg/kg/min; pt noted with increased work of breathing, tachypnea. Per MD "okay to titrate Diprivan up to 100mcg/kg/min if necessary, not a candidate for weaning at this time." Orders noted and carried out.
--- NOTE | 2018-10-14 11:05 | NUR ---
WOUND CARE CONSULT: PT PRESENTS WITH BLANCHABLE REDNESS TO SACRUM AND HEELS, PRESENT ON ADMISSION. PT IS INCONTINENT OF STOOL. NORTH CATH NOTED. RT GROIN DRESSING DRY AND INTACT S/P SURGICAL PROCEDURE PER NURSING STAFF. DEFER TO MD FOR RT GROIN AREA. PT INTUBATED AND IMMOBILE. FIRST STEP LOW AIRLOSS MATTRESS TO BE PLACED. ALL SKIN PROTECTION RECOMMENDATIONS DISCUSSED WITH NURSING STAFF. WILL SEE PRN. MD IN AGREEMENT WITH PLAN OF CARE. Addendum: 10/14/18 at 1109 by JERRY CORLEY WNDNU DEFER TO MD FOR BILATERAL FOREARM SKIN CONDITION/RASH.
--- NOTE | 2018-10-14 15:15 | NUR ---
ICU/RN: Hygienic and wound care rendered. Pt tolerated well.
[2018-10-14 15:37] LABS: APPEARANCE,URINE SL CLOUDY (CLEAR); BILIRUBIN,URINE NEGATIVE (NEGATIVE); BLOOD, URINE 1+ Ery/uL (NEGATIVE); COLOR,URINE YELLOW (YELLOW); KETONES,URINE NEGATIVE (NEGATIVE); LEUKOCYTE ESTERASE ,URINE NEGATIVE (NEGATIVE); NITRITE, URINE NEGATIVE (NEGATIVE); PROTEIN,URINE 1+ mg/dl (NEGATIVE); UGLUCOSE NEGATIVE (NEGATIVE); UROBILINOGEN,URINE 0.2 EU/dL (0.2)
[2018-10-14] MEDS: JEVITY 1.2 CAL 1,000 ML BOTTLE GT PRN (16:05)
[2018-10-14 16:20] LABS: BACTERIA,URINE Few /HPF (None Seen); SQUAMOUS EPITHELIAL CELL,UR Rare /HPF (None Seen)
[2018-10-14 16:21] LABS: URIC ACID CRYSTALS,URINE Moderate /HPF (None Seen)
[2018-10-14 16:22] LABS: URINE AMORPHOUS URATE Few /HPF (None Seen); WBC,URINE 0-3 /HPF (0-3)
[2018-10-14] MEDS ORDERED: METOCLOPRAMIDE HCL 10 MG/2 ML VIAL IV PRN (16:30)
--- NOTE | 2018-10-14 16:30 | NUR ---
ICU/RN: EBONIE Stephens rounds. Informed of poor toleration of feeds; with emesis x1 of tube feeding, residuals of 50-80cc. Current feeding on hold. Will resume tube feeds in 2 hours at 20mls/hr. Orders noted and carried out.
--- NOTE | 2018-10-14 17:41 | NUR ---
RT NOTE PT REMAINS MECHANICALLY VENTILATED VIA 7.5 ETT 26 CM AT LIP. CUFF INFLATED VIA JIG AND FIXTURE BUILDER APPRENTICE. ETT SECURE. VENTILATOR SETTINGS PRESCRIBED. ALARMS SET PER PROTOCOL AND AUDIBLE. VENT PLUGGED IN TO RED OUTLET. AMBU BAG AT BED SIDE. NO DISTRESS NOTED. Addendum: 10/14/18 at 1741 by ANISHA BRYANT RT Amended: Links added.
[2018-10-14] MEDS ORDERED: FEE PK DOSING 1 MIN EA MC ONE (18:41)
--- NOTE | 2018-10-14 19:45 | NUR ---
ICU/APPLICATION SYSTEMS ADMINISTRATOR RECEIVED REPORT FROM DAY NURSE. SEE NURSING FLOW SHEET FOR ASSESSMENT AND ANY SKIN ISSUES THAT PT MAY HAVE ALONG WITH THE INTERVENTIONS TO EACH OF THESE. PT HAS IV FLOWSHEET OF DRIPS ALONG WITH TITRATIONS. PT WAS TURNED AND REPOSITIONED FOR COMFORT AND CARE. NO ACUTE DISTRESS SEEN AT THIS TIME. WILL MONITOR THIS PT.
[2018-10-14] MEDS: VANCOMYCIN 1 GM in IV D5W 250 ML IV SCH (20:03)
[2018-10-14] MEDS: MEROPENEM 500 MG in IV NS 0.9% 50 ML IV SCH (20:42)
--- NOTE | 2018-10-14 22:20 | NUR ---
ICU/GATHERING MACHINE FEEDER PT GIVEN PM CARE, NO BM SEEN. PT REMAINS ON CURRENT VENT SETTINGS WITH SATURATION AT 98-100%. PT WAS TURNED AND REPOSITIONED FOR COMFORT AND CARE. WILL CONTINUE TO MONITOR THIS PT. NO ACUTE DISTRESS SEEN AT THIS TIME.
--- NOTE | 2018-10-14 23:35 | NUR ---
ICU/PARENT AIDE BLOOD SUGAR IS 112. THERE IS NO COVERAGE FOR THIS PER MD AND HOSPITAL PROTOCOL. WILL CONTINUE TO MONITOR THIS PT. PT WAS TURNED AND REPOSITIONED FOR COMFORT AND CARE.
[2018-10-15] VITALS (46 sets, daily range): BP systolic 111–175; BP diastolic 60–108
[2018-10-15] MEDS: BLOOD SUGAR DIAGNOSTIC 1 EACH STRIP IN SCH ×5 (00:17→23:54)
[2018-10-15] MEDS: PROPOFOL 100 ML IV PRN ×5 (01:32→20:45)
--- NOTE | 2018-10-15 02:30 | NUR ---
ICU/COOK SOUP PT GIVEN AM CARE, PT HAD LIQUID STOOL. PT REMAINS ON CURRENT VENT SETTINGS WITH SATURATION AT 98-100%. PT WAS TURNED AND REPOSITIONED FOR COMFORT AND CARE. WILL CONTINUE TO MONITOR THIS PT. NO ACUTE DISTRESS SEEN AT THIS TIME.
--- NOTE | 2018-10-15 04:30 | NUR ---
ICU/ALUMNI SECRETARY AM LABS DONE, AWAIT FOR ANY ABNORMAL LABS.
[2018-10-15 05:23] LABS: BASOPHILS # (AUTO) 0.1 /CMM (0.0-0.2); BASOPHILS % (AUTO) 0.8 % (0.0-2.0); EOSINOPHILS % (AUTO) 4.5 % (0.0-6.0); HEMATOCRIT 28 % (39-51); HEMOGLOBIN 9.8 g/dL (13.5-17.5); LYMPHOCYTES # (AUTO) 0.7 /CMM (0.8-4.8); LYMPHOCYTES % (AUTO) 9.1 % (20.0-44.0); MEAN CORPUSCULAR HGB CONC 35 g/dl (31.0-36.0); MEAN CORPUSCULAR VOLUME 93 fL (80-96); MONOCYTES # (AUTO) 0.6 /CMM (0.1-1.30); MONOCYTES % (AUTO) 6.8 % (2.0-12.0); NEUTROPHILS # (AUTO) 6.4 /CMM (1.8-8.9); NEUTROPHILS % (AUTO) 78.8 % (43.0-81.0); PLATELET COUNT (AUTO) 239 /CMM (150-450); WHITE BLOOD COUNT (AUTO) 8.2 K/uL (4.3-11.0)
[2018-10-15 05:34] LABS: CALCIUM, SERUM 8.2 mg/dL (8.5-10.1); CREATININE 2.1 mg/dL (0.6-1.3); POTASSIUM 3.3 mmol/L (3.5-5.1)
--- NOTE | 2018-10-15 06:10 | NUR ---
ICU/CUSTOMER ENGINEERING SPECIALIST BLOOD SUGAR IS 128. THERE IS NO COVERAGE FOR THIS PER MD AND HOSPITAL PROTOCOL. WILL CONTINUE TO MONITOR THIS PT. PT WAS TURNED AND REPOSITIONED FOR COMFORT AND CARE.
[2018-10-15] MEDS: SUCRALFATE 1 G/10 ML UDC PO SCH ×4 (07:55→21:13)
[2018-10-15] MEDS ORDERED: POTASSIUM CHLORIDE 20 MEQ POWDER PACKET GT SCH ×2 (08:00→10:00)
[2018-10-15] MEDS: MEROPENEM 500 MG in IV NS 0.9% 50 ML IV SCH ×2 (09:43→21:12)
[2018-10-15] MEDS: NEXIUM 40 MG VIAL IV SCH (09:43)
--- NOTE | 2018-10-15 09:58 | NUR ---
rn notes 07-received patient from rn. patient orally intubated, on ac mode, thick secretions from ETT suctioned, oral care done. on propofol drip at 40 mcg/kg/min. Dr. Stovall made rounds.RT checked ETT balloon. 09-EBONIE Cobb made rounds, informed him of patient status, reported pupillary status
--- NOTE | 2018-10-15 12:11 | NUR ---
rn notes family visited, they were informed of patient status. patient remains on ac mode
[2018-10-15] MEDS: PANTOPRAZOLE 40 MG/PACK PACK GT SCH (16:12)
[2018-10-15] MEDS: LACTOBACILLUS RHAMNOSUS GG 1 EACH CAP.SPRINK GT SCH (16:12)
--- NOTE | 2018-10-15 16:34 | NUR ---
RN note 1400-patient remains on ac mode. safety maintained when repositioned.moves feet away from stimulus.good cough reflex, thick secretions from ETT. skin warm to touch 1600-his sibling led by nirmal doe and they were updated of patient status. questions answered and they verbalized understanding. they verbalized their wish to speak to PMD on Wednesday, they were instructed to call on Wednesday as well to see who will be taking care of patient on Wednesday so it can be arranged.
[2018-10-15] MEDS: JEVITY 1.2 CAL 1,000 ML BOTTLE GT PRN (18:20)
--- NOTE | 2018-10-15 18:22 | NUR ---
RT NOTE PT REMAINS MECHANICALLY VENTILATED VIA 7.5 ETT 26 CM @ LIP. ETT SECURE. CUFF INFLATED VIA LEAVE SPECIALIST. VENTILATOR SETTINGS PRESCRIBED. ALARMS SET PER PROTOCOL AND AUDIBLE. VENT PLUGGED IN TO RED OUTLET. AMBU BAG AT BED SIDE. NO DISTRESS NOTED. Addendum: 10/15/18 at 1822 by ANISHA BRYANT RT Amended: Links added.
--- NOTE | 2018-10-15 19:45 | NUR ---
SENIOR FINANCIAL REPORTING ACCOUNTANT INITIAL NOTE PT REMAINS MECHANICALLY VENTILATED VIA 7.5 ETT 26 CM AT LIP. CUFF INFLATED VIA WHOLESALE MANAGER. ETT SECURE. VENTILATOR SETTINGS PRESCRIBED, SEDATED ON PROPOFOL @ 40MCQ. OGT WELL SECURE, JEVITY 1.2 @2OCC/HR RUNNING, NO RESIDUAL, WILL CONT' TO MONITOR, KUB IF RESIDUAL GREATER THAN 100 MSC. ALARMS SET PER PROTOCOL AND AUDIBLE. VENT PLUGGED IN TO RED OUTLET. AMBU BAG AT BED SIDE. NO DISTRESS NOTED.
[2018-10-15] MEDS: VANCOMYCIN 1 GM in IV D5W 250 ML IV SCH (20:01)
[2018-10-16] VITALS (35 sets, daily range): BP systolic 124–185; BP diastolic 66–103
[2018-10-16] MEDS: PROPOFOL 100 ML IV PRN ×2 (00:33→04:33)
[2018-10-16 04:39] LABS: BASOPHILS # (AUTO) 0.1 /CMM (0.0-0.2); BASOPHILS % (AUTO) 1.3 % (0.0-2.0); EOSINOPHILS % (AUTO) 4.6 % (0.0-6.0); HEMATOCRIT 30 % (39-51); HEMOGLOBIN 10.6 g/dL (13.5-17.5); LYMPHOCYTES # (AUTO) 1.2 /CMM (0.8-4.8); LYMPHOCYTES % (AUTO) 13.9 % (20.0-44.0); MEAN CORPUSCULAR HGB CONC 35 g/dl (31.0-36.0); MEAN CORPUSCULAR VOLUME 92 fL (80-96); MONOCYTES # (AUTO) 0.6 /CMM (0.1-1.30); MONOCYTES % (AUTO) 6.7 % (2.0-12.0); NEUTROPHILS # (AUTO) 6.5 /CMM (1.8-8.9); NEUTROPHILS % (AUTO) 73.5 % (43.0-81.0); PLATELET COUNT (AUTO) 309 /CMM (150-450); RED BLOOD CELL COUNT(AUTO) 3.24 MIL/uL (4.5-6.0); WHITE BLOOD COUNT (AUTO) 8.8 K/uL (4.3-11.0)
[2018-10-16 04:59] LABS: CALCIUM, SERUM 8.1 mg/dL (8.5-10.1); CREATININE 2.1 mg/dL (0.6-1.3); POTASSIUM 3.8 mmol/L (3.5-5.1)
[2018-10-16 06:01] LABS: EOSINOPHILS % (MANUAL) 4 % (0-4); LYMPHOCYTES % (MANUAL) 11 % (16-48); MONOCYTES % (MANUAL) 8 % (0-11.0); NEUTROPHILS % (MANUAL) 75 (42-76)
[2018-10-16] MEDS: BLOOD SUGAR DIAGNOSTIC 1 EACH STRIP IN SCH ×4 (06:35→23:49)
--- NOTE | 2018-10-16 06:37 | NUR ---
IT TEACHER CLOSING NOTE PT REMAINS MECHANICALLY VENTILATED VIA 7.5 ETT 26 CM AT LIP. CUFF INFLATED VIA BALLISTICIAN. ETT SECURE. VENTILATOR SETTINGS PRESCRIBED, SEDATED ON PROPOFOL @ 40MCQ. OGT WELL SECURE, JEVITY 1.2 @2OCC/HR RUNNING, NO RESIDUAL, WILL CONT' TO MONITOR, KUB IF RESIDUAL GREATER THAN 100 MSC. ALARMS SET PER PROTOCOL AND AUDIBLE. VENT PLUGGED IN TO RED OUTLET. AMBU BAG AT BED SIDE. NO DISTRESS NOTED
[2018-10-16] MEDS: SUCRALFATE 1 G/10 ML UDC PO SCH ×4 (08:08→21:14)
[2018-10-16] MEDS: LACTOBACILLUS RHAMNOSUS GG 1 EACH CAP.SPRINK GT SCH ×2 (08:08→16:47)
[2018-10-16] MEDS: PANTOPRAZOLE 40 MG/PACK PACK GT SCH ×2 (08:08→16:47)
[2018-10-16] MEDS: MEROPENEM 500 MG in IV NS 0.9% 50 ML IV SCH ×2 (08:09→21:14)
[2018-10-16] MEDS: INSULIN REGULAR, HUMAN 100 UNIT/ML 3 ML VIAL SQ PRN ×3 (11:34→23:51)
[2018-10-16 12:23] LABS: ABG BASE EXCESS -3.6 mmol/L; ABG OXYGEN SATURATION 96.9 % (92.0-98.5); ABG PCO2 29.4 mmHg (35.0-45.0); ABG PH 7.441 (7.350-7.450); ABG PO2 101.8 mmHg (75.0-100.0); AaDO2 149.6 mmHg; COHb 0.3 % (0.5-1.5); MetHb 0.4 % (0.0-1.5); O2Hb 96.2 % (94.0-97.0); PEEP,BG 5 cm H2O; SITE, ABG Right Radial; VT, ABG 550 mL
--- NOTE | 2018-10-16 12:58 | NUR ---
rn notes 0730-received patient from rn. patient remaisn orally inubated, no sign of pain, on propfool drip at 40 mcg/kg/min, start titrating, patient for imv today. OGT feedings ongoing at 20 ml/hr, monitor tolerance. HOB up.patient on special bed. 0900-propofol at 20 mcg/kg/min, patient not following commands, noted to open eyes briefly when stimulated. EBONIE owens updated of patient status and results. 1015-on IMV mode propofol off, Dr. Chow made rounds, evaluated patient. monitor patient tolerance to IMV mode.
--- NOTE | 2018-10-16 15:04 | NUR ---
rn notes 1300-accuchecks done earlier, coverage administered as ordered.HOB up.noted to oepn eyes at times to loud voice. remains on IMV mode. 1430-tries to open ees when anme is called, not tracking. IMV onoging, saturation up to 98%. oral care done.
--- NOTE | 2018-10-16 16:39 | NUR ---
RN NOTES 1600-RESIDUALS CHECKED, <30ML.HOB UP ON IMV MODE. BROTHER, PATRICIA, AND FAMILY VISITS. PATRICIA WAS UPDATED OF PATIENT STATUS.
[2018-10-16] MEDS: Z GUARD REMEDY 2 OZ OINT TP PRN (16:58)
[2018-10-16] MEDS ORDERED: FERROUS SULFATE (325 MG) 325 MG/TAB TABLET PO SCH (17:00)
[2018-10-16] MEDS: VANCOMYCIN 1 GM in IV D5W 250 ML IV SCH (19:45)
--- NOTE | 2018-10-16 21:08 | NUR ---
CORSETS SALESPERSON NOTES CURRENT BP 165/89, HR 97 BPM. SBP TRENDING 150s-170s THROUGHOUT THE DAY, NO BP MEDS ON BOARD. MOUNA HUNTER MADE AWARE OF CURRENT VITAL SIGNS, STATING THAT "WE NEED BP ELEVATED IN THE 160s RANGE." WILL CONTINUE TO CLOSELY MONITOR THE PATIENT
[2018-10-17] VITALS (28 sets, daily range): BP systolic 143–193; BP diastolic 66–97
[2018-10-17 05:06] LABS: CALCIUM, SERUM 8.3 mg/dL (8.5-10.1); CREATININE 1.9 mg/dL (0.6-1.3); POTASSIUM 3.7 mmol/L (3.5-5.1)
[2018-10-17] MEDS: INSULIN REGULAR, HUMAN 100 UNIT/ML 3 ML VIAL SQ PRN ×3 (06:50→17:38)
[2018-10-17] MEDS: BLOOD SUGAR DIAGNOSTIC 1 EACH STRIP IN SCH ×3 (07:00→17:30)
--- NOTE | 2018-10-17 07:00 | NUR ---
ANIMAL HUMANE AGENT SUPERVISOR NOTES PATIENT RESTING COMFORTABLY IN BED, NO ACUTE EVENTS THROUGHOUT THE SHIFT, TOLERATED SIMV MODE WELL, NO NOTED RESPIRATORY DISTRESS. PATIENT ENDORSED TO THE AM SHIFT NURSE FOR CONTINUITY OF CARE
--- NOTE | 2018-10-17 07:45 | NUR ---
Pt seen & examined by Dr. Stovall, updated about pt status.
--- NOTE | 2018-10-17 07:52 | NUR ---
HOT DIP TINNING SUPERVISOR NOTES PATIENT'S BROTHER VIKAS [phone], TO SPEAK TO MEDARDO MAGANA TOMORROW MORNING 10/18/2018 @ 0800 IN PERSON. MEDARDO MAGANA ALREADY AWARE PER NURSE BATOOL
[2018-10-17] MEDS: SUCRALFATE 1 G/10 ML UDC PO SCH ×4 (07:59→21:29)
[2018-10-17 08:21] LABS: ABG BASE EXCESS -1.9 mmol/L; ABG OXYGEN SATURATION 97.5 % (92.0-98.5); ABG PCO2 30.2 mmHg (35.0-45.0); ABG PH 7.463 (7.350-7.450); ABG PO2 122.7 mmHg (75.0-100.0); AaDO2 127.8 mmHg; COHb 0.3 % (0.5-1.5); MetHb 0.7 % (0.0-1.5); O2Hb 96.5 % (94.0-97.0); PEEP,BG 5 cm H2O; SITE, ABG Right Radial; VT, ABG 550 mL
--- NOTE | 2018-10-17 08:30 | NUR ---
Pt seen & examined by Reza LOOMIS, updated about pt status. Per CASINO MANAGER he will refer pt to neuro MD.
[2018-10-17 08:35] LABS: BASOPHILS # (AUTO) 0.1 /CMM (0.0-0.2); BASOPHILS % (AUTO) 0.9 % (0.0-2.0); EOSINOPHILS % (AUTO) 2.3 % (0.0-6.0); HEMATOCRIT 30 % (39-51); HEMOGLOBIN 10.3 g/dL (13.5-17.5); LYMPHOCYTES # (AUTO) 0.8 /CMM (0.8-4.8); LYMPHOCYTES % (AUTO) 8.3 % (20.0-44.0); MEAN CORPUSCULAR HGB CONC 35 g/dl (31.0-36.0); MEAN CORPUSCULAR VOLUME 92 fL (80-96); MONOCYTES # (AUTO) 0.7 /CMM (0.1-1.30); MONOCYTES % (AUTO) 6.4 % (2.0-12.0); NEUTROPHILS # (AUTO) 8.4 /CMM (1.8-8.9); NEUTROPHILS % (AUTO) 82.1 % (43.0-81.0); PLATELET COUNT (AUTO) 386 /CMM (150-450); RED BLOOD CELL COUNT(AUTO) 3.23 MIL/uL (4.5-6.0); WHITE BLOOD COUNT (AUTO) 10.2 K/uL (4.3-11.0)
--- NOTE | 2018-10-17 08:45 | NUR ---
Pt seen & examined by Dr. Chow, updated about pt condition. Called pt's family (brother Baltazar Kraft, stated that he is the decision maker), per Baltazar tomorrow their family member/s will be coming here in the AM to see the pt have a talk to the MD re: plan of care. Dr. Chow made aware about this.
--- NOTE | 2018-10-17 09:10 | NUR ---
Called Reza LOOMIS re: persistently high BP (SBP >190's), per SIEVE GRADER TENDER monitor for now. He consulted neurologist.
[2018-10-17] MEDS: PANTOPRAZOLE 40 MG/PACK PACK GT SCH ×2 (09:25→17:30)
[2018-10-17] MEDS: LACTOBACILLUS RHAMNOSUS GG 1 EACH CAP.SPRINK GT SCH ×2 (09:25→17:30)
[2018-10-17] MEDS: MEROPENEM 500 MG in IV NS 0.9% 50 ML IV SCH ×2 (09:25→21:26)
[2018-10-17] MEDS: Z GUARD REMEDY 2 OZ OINT TP PRN (09:26)
[2018-10-17 10:07] LABS: EOSINOPHILS % (MANUAL) 4 % (0-4); LYMPHOCYTES % (MANUAL) 7 % (16-48); MONOCYTES % (MANUAL) 5 % (0-11.0); NEUTROPHILS % (MANUAL) 84 (42-76)
--- NOTE | 2018-10-17 11:14 | NUR ---
Social service consult requested by EBONIE Thompson regarding family contact information. SW contacted pt's mother Naima who informed SW that her two sons are handling the medical care for [facility]. Pt' s brother Baltazar Kraft can be reached at and brother Keshav can be reached at . ADEN spoke with GRETCHEN Perdue who informed ADEN that they are aware and spoke with the brothers who will be coming to [facility] tomorrow.
--- NOTE | 2018-10-17 12:00 | NUR ---
Pt seen & examined by EBONIE Morris. Per NETWORK DIAGNOSTIC SUPPORT SPECIALIST's order remove pt's central line if not being used.
[2018-10-17] MEDS: JEVITY 1.2 CAL 1,000 ML BOTTLE GT PRN (18:50)
--- NOTE | 2018-10-17 19:00 | NUR ---
FLAKER TENDER CLOSING NOTES: Pt resting in bed comfortably, not in any distress, obtunded. On MV via ETT, tolerated SIMV mode. SR on telemonitor. Central line removed as ordered w/ no signs of bleeding/complication noted. OGT kept patent & intact w/ no GT residuals while on Jevity 1.2 x 50cc/hr. B soft wrist restraints kept on for pt's safety. FC kept patent & intact draining to BSB w/ yellowish UOP. Safety precaution kept in place at all times w/ bed in lowest & locked pos. Call light placed w/in reach. Endorsed to PM RN for MARNI. Pt seen & examined by Dr. Coleman w/ orders to do EEG routine to r/o seizure. Per MD, keep SBP <150, PM RN to follow u w/ .
--- NOTE | 2018-10-17 19:14 | NUR ---
COURT MANAGER NOTES PATIENT SEEN AND EXAMINED BY DR HOPE, WITH NEW ORDER FOR EEG TOMORROW TO EVALUATE/RULE OUT SEIZURE ACTIVITY. MD ALSO MADE AWARE THAT SBP HAS BEEN TRENDING IN THE 160s-180s, WHICH MOUNA HUNTER PREVIOUSLY HAS ALREADY BEEN MADE AWARE. PER DR HOPE, NEW GOAL FOR SBP IS TO KEEP LESS THAN 150. WILL FOLLOW UP WITH PRIMARY MD TO OBTAIN ORDERS FOR BLOOD PRESSURE MEDICATION
[2018-10-17] MEDS: VANCOMYCIN 1 GM in IV D5W 250 ML IV SCH (19:57)
--- NOTE | 2018-10-17 20:00 | NUR ---
END USER SUPPORT SPECIALIST NOTES GASTRIC RESIDUAL LESS THAN 10ML. HOWEVER, PATIENT NOTED TO START COUGHING, WHICH CAUSED HIM TO HAVE EPISODE OF EMESIS X1, WITNESSED. TUBE FEEDING TURNED OFF IMMEDIATELY, HOB ELEVATED TO HIGH FOWLERS POSITION, REGLAN AND ZOFRAN ADMINISTERED VIA IV. PATIENT SUCTIONED FOR AIRWAY CLEARANCE. WILL MONITOR CLOSELY
--- NOTE | 2018-10-17 20:40 | NUR ---
CAMPAIGN SPECIALIST NOTES RECEIVED NEW ORDER FOR HYDRALAZINE 10MG IV PUSH Q4H PRN FOR SBP >150. WILL CARRY OUT NEW ORDERS AND CLOSELY MONITOR THE PATIENT
[2018-10-17] MEDS: hydrALAZINE HCL IV 20 MG VIAL IV PRN (20:50)
[2018-10-17] MEDS: ACETAMINOPHEN 325 MG TABLET PO PRN (21:26)
[2018-10-18] VITALS (41 sets, daily range): BP systolic 131–172; BP diastolic 61–82
[2018-10-18] MEDS: BLOOD SUGAR DIAGNOSTIC 1 EACH STRIP IN SCH ×4 (00:30→17:02)
[2018-10-18] MEDS: hydrALAZINE HCL IV 20 MG VIAL IV PRN ×2 (00:36→11:18)
[2018-10-18 04:52] LABS: BASOPHILS # (AUTO) 0.1 /CMM (0.0-0.2); BASOPHILS % (AUTO) 0.7 % (0.0-2.0); EOSINOPHILS % (AUTO) 1.5 % (0.0-6.0); HEMATOCRIT 31 % (39-51); HEMOGLOBIN 10.8 g/dL (13.5-17.5); LYMPHOCYTES # (AUTO) 0.8 /CMM (0.8-4.8); LYMPHOCYTES % (AUTO) 6.2 % (20.0-44.0); MEAN CORPUSCULAR HGB CONC 35 g/dl (31.0-36.0); MEAN CORPUSCULAR VOLUME 90 fL (80-96); MONOCYTES # (AUTO) 0.7 /CMM (0.1-1.30); MONOCYTES % (AUTO) 5.5 % (2.0-12.0); NEUTROPHILS # (AUTO) 11.5 /CMM (1.8-8.9); NEUTROPHILS % (AUTO) 86.1 % (43.0-81.0); PLATELET COUNT (AUTO) 462 /CMM (150-450); RED BLOOD CELL COUNT(AUTO) 3.44 MIL/uL (4.5-6.0); WHITE BLOOD COUNT (AUTO) 13.3 K/uL (4.3-11.0)
[2018-10-18 05:00] LABS: CALCIUM, SERUM 8.6 mg/dL (8.5-10.1); CREATININE 1.8 mg/dL (0.6-1.3); POTASSIUM 3.3 mmol/L (3.5-5.1)
--- NOTE | 2018-10-18 06:30 | NUR ---
SWINE NUTRITIONIST CLOSING NOTES PATIENT RESTING IN BED, APPEARS COMFORTABLE, NO ACUTE DISTRESS NOTED. NO FURTHER EPISODES OF EMESIS, HOB KEPT IN SEMI-FOWLERS POSITION. CALL LIGHT LEFT WITHIN EASY REACH, BED IN LOWEST AND LOCKED POSITION. PRN HYDRALAZINE ADMINISTERED TWICE THROUGHOUT THE SHIFT. WILL ENDORSE THE PATIENT TO THE AM SHIFT NURSE FOR CONTINUITY OF CARE
[2018-10-18] MEDS: INSULIN REGULAR, HUMAN 100 UNIT/ML 3 ML VIAL SQ PRN ×3 (06:42→17:05)
[2018-10-18] MEDS: ACETAMINOPHEN 325 MG TABLET PO PRN ×2 (07:45→21:35)
[2018-10-18] MEDS: SUCRALFATE 1 G/10 ML UDC PO SCH ×4 (07:45→21:35)
[2018-10-18 08:20] LABS: ABG BASE EXCESS -1.3 mmol/L; ABG OXYGEN SATURATION 97.8 % (92.0-98.5); ABG PCO2 29.4 mmHg (35.0-45.0); ABG PO2 136.3 mmHg (75.0-100.0); AaDO2 115.1 mmHg; COHb 0.3 % (0.5-1.5); MetHb 0.7 % (0.0-1.5); O2Hb 96.8 % (94.0-97.0); PEEP,BG 5 cm H2O; SITE, ABG Left Radial; VT, ABG 550 mL
--- NOTE | 2018-10-18 08:30 | NUR ---
Pt seen & examined by Reza LOOMIS, was able to talk to family at bedside. Concerns/questions answered by FOOD SERVICE SPECIALIST.
--- NOTE | 2018-10-18 09:00 | NUR ---
Pt seen & examined by Dr. Chow, was able to talk to family at bedside. Concerns/questions answered by .
[2018-10-18] MEDS: LACTOBACILLUS RHAMNOSUS GG 1 EACH CAP.SPRINK GT SCH ×2 (09:20→16:54)
[2018-10-18] MEDS: PANTOPRAZOLE 40 MG/PACK PACK GT SCH ×2 (09:20→16:54)
[2018-10-18] MEDS: MEROPENEM 500 MG in IV NS 0.9% 50 ML IV SCH ×2 (09:21→21:35)
[2018-10-18] MEDS ORDERED: POTASSIUM CHLORIDE 20 MEQ POWDER PACKET GT SCH (11:30)
--- NOTE | 2018-10-18 12:42 | NUR ---
Pt noted to be tachycardic, tachypneic while on SIMV mode. Dr. Chow made aware & ordered to place back pt on AC mode rate 12. RT made aware.
--- NOTE | 2018-10-18 17:30 | NUR ---
Pt seen & examined by EBONIE Morris & Dr. Rai, updated about pt status.
--- NOTE | 2018-10-18 18:25 | NUR ---
GRAPHICS ARTIST CLOSING NOTES: Pt resting in bed comfortably, not in any distress, obtunded. On MV via ETT, back to AC mode. SR/ST on telemonitor. IV line access on RFA & RH G20, SL, both patent & intact w/ no s/sx of infection/infiltration noted. OGT kept patent & intact w/ no GT residuals or N/V while on Jevity 1.2 x 50cc/hr. FC kept patent & intact draining to BSB w/ yellowish UOP. Safety precaution kept in place at all times w/ bed in lowest & locked pos. Call light placed w/in reach. Will endorse to PM RN for MARNI.
--- NOTE | 2018-10-18 18:36 | NUR ---
RT END OF THE SHIFT REPORT, PT REC. 0700 AM PT. 67 Y OLD MALE REMAIN ORALLY INTUBATED ETT # 7.5 @ 26 CM LIPLINE WITH NOTED SETTINGS, ALARMS ARE SET AND FUNCTIONAL, B/S BILATERALLY FINE, MINIMAL SECRETIONS HME CHANGED, TRUCK MECHANIC APPRENTICE DONE, @1240 VENT CHANGES DONE PLACED ON AC MODE PER DR. WARD ORDER. EQUAL CHEST RISE NOTED. AMBU BAG REMAIN AT THE BEDSIDE. T/O DAY PT. BILATERALLY RALES B/S, MINIMAL SUX'D FOR WHITE THICK SECRETIONS. PT. REMAIN STABLE WILL CONTINUE TO MONITOR. REPORT WILL PASS TO PM SHIFT. Addendum: 10/18/18 at 1839 by NAYELY DORAN RT Amended: Links added.
--- NOTE | 2018-10-18 19:30 | NUR ---
SUPERINTENDENT SANITATION INITIAL SHIFT NOTES RECEIVED PATIENT IN BED, ASLEEP, EYES CLOSED, OBTUNDED. PATIENT ORALLY INTUBATED 7.5/26CM @ LIP LINE, ON MECHANICAL VENTILATOR AT SETTINGS PRESCRIBED, BACK TO AC MODE SINCE DAY SHIFT DUE TO RESPIRATORY DISTRESS. ADVANCED MANAGER READS SINUS RHYTHM, HR 98 BPM WITH BBB. NORTH CATHETER PATENT AND INTACT, DRAINING CLOUDY YELLOW URINE WITH SEDIMENTS VIA GRAVITY. OGT PATENT AND INTACT, ONGOING TUBE FEEDING, TOLERATING WELL, MINIMAL GASTRIC RESIDUALS NOTED. HOB ELEVATED FOR ASPIRATION PRECAUTIONS. WILL CONTINUE TO CLOSELY MONITOR
[2018-10-18] MEDS: VANCOMYCIN 1 GM in IV D5W 250 ML IV SCH (20:10)
[2018-10-18] MEDS ORDERED: IV NS 0.9% 250 ML IV ONE (20:30)
[2018-10-18] MEDS: JEVITY 1.2 CAL 1,000 ML BOTTLE GT PRN (21:43)
[2018-10-19] VITALS (27 sets, daily range): BP systolic 135–173; BP diastolic 64–87
[2018-10-19] MEDS: BLOOD SUGAR DIAGNOSTIC 1 EACH STRIP IN SCH ×4 (00:57→17:45)
[2018-10-19] MEDS: INSULIN REGULAR, HUMAN 100 UNIT/ML 3 ML VIAL SQ PRN ×4 (00:58→17:51)
[2018-10-19] MEDS: hydrALAZINE HCL IV 20 MG VIAL IV PRN ×4 (01:27→21:26)
--- NOTE | 2018-10-19 01:30 | NUR ---
BUNDLE BREAKER NOTES BP 161/73, HYDRALAZINE ADMINISTERED ORDERED. WILL CLOSELY MONITOR
[2018-10-19 04:54] LABS: BASOPHILS # (AUTO) 0.1 /CMM (0.0-0.2); BASOPHILS % (AUTO) 0.9 % (0.0-2.0); EOSINOPHILS % (AUTO) 2.9 % (0.0-6.0); HEMATOCRIT 32 % (39-51); HEMOGLOBIN 11.2 g/dL (13.5-17.5); LYMPHOCYTES # (AUTO) 1.3 /CMM (0.8-4.8); MEAN CORPUSCULAR HGB CONC 35 g/dl (31.0-36.0); MEAN CORPUSCULAR VOLUME 92 fL (80-96); MONOCYTES # (AUTO) 0.7 /CMM (0.1-1.30); MONOCYTES % (AUTO) 5.5 % (2.0-12.0); NEUTROPHILS # (AUTO) 10.6 /CMM (1.8-8.9); NEUTROPHILS % (AUTO) 80.7 % (43.0-81.0); PLATELET COUNT (AUTO) 541 /CMM (150-450); RED BLOOD CELL COUNT(AUTO) 3.49 MIL/uL (4.5-6.0); WHITE BLOOD COUNT (AUTO) 13.2 K/uL (4.3-11.0)
[2018-10-19 04:56] LABS: CALCIUM, SERUM 8.9 mg/dL (8.5-10.1); POTASSIUM 3.4 mmol/L (3.5-5.1)
--- NOTE | 2018-10-19 07:04 | NUR ---
REVENUE SETTLEMENTS ADMINISTRATOR NOTES HYDRALAZINE 10MG IV PUSH ADMINISTERED FOR BP 160/85.
[2018-10-19] MEDS: SUCRALFATE 1 G/10 ML UDC PO SCH ×4 (07:51→21:19)
[2018-10-19 08:30] LABS: ABG BASE EXCESS -1.9 mmol/L; ABG OXYGEN SATURATION 98.2 % (92.0-98.5); ABG PCO2 29.3 mmHg (35.0-45.0); ABG PO2 158.3 mmHg (75.0-100.0); AaDO2 93.2 mmHg; COHb 0.3 % (0.5-1.5); MetHb 0.6 % (0.0-1.5); O2Hb 97.3 % (94.0-97.0); PEEP,BG 5 cm H2O; SITE, ABG Left Radial; VT, ABG 550 mL
--- NOTE | 2018-10-19 08:30 | NUR ---
Pt seen & examined by EBONIE Cobb, updated about pt status.
[2018-10-19] MEDS: LACTOBACILLUS RHAMNOSUS GG 1 EACH CAP.SPRINK GT SCH ×2 (08:39→17:44)
[2018-10-19] MEDS: PANTOPRAZOLE 40 MG/PACK PACK GT SCH ×2 (08:39→17:44)
--- NOTE | 2018-10-19 08:40 | NUR ---
ABG reviewed by Dr. Chow w/ orders change TV to 500.
[2018-10-19] MEDS: MEROPENEM 500 MG in IV NS 0.9% 50 ML IV SCH ×2 (08:42→21:14)
[2018-10-19] MEDS: Z GUARD REMEDY 2 OZ OINT TP PRN (08:42)
--- NOTE | 2018-10-19 09:00 | NUR ---
Pt seen & examined by Dr. Chow, updated about pt status.
--- NOTE | 2018-10-19 10:00 | NUR ---
Per Dr. Chow, family decided to do comfort care tomorrow. CN aware.
[2018-10-19] MEDS: Potassium Chloride 20 MEQ in IV D5W 1,000 ML IV PRN (12:20)
[2018-10-19] MEDS: ACETAMINOPHEN 325 MG TABLET PO PRN (17:44)
--- NOTE | 2018-10-19 18:46 | NUR ---
ELECTRICAL APPLIANCE REPAIRER CLOSING NOTES: Pt resting in bed comfortably, not in any distress, obtunded. On MV via ETT, tolerating AC mode. SR/ST on telemonitor. IV line access on RFA & RH G20, SL, both patent & intact w/ no s/sx of infection/infiltration noted w/ KCl 20 meqs in 1L D5W x 50cc/hr infusing well. OGT kept patent & intact w/ no GT residuals or N/V while on Jevity 1.2 x 50cc/hr. FC kept patent & intact draining to BSB w/ yellowish UOP. Safety precaution kept in place at all times w/ bed in lowest & locked pos. Call light placed w/in reach. Will endorse to PM RN for MARNI.
[2018-10-19] MEDS: VANCOMYCIN 1 GM in IV D5W 250 ML IV SCH (19:38)
[2018-10-19] MEDS: JEVITY 1.2 CAL 1,000 ML BOTTLE GT PRN (21:23)
[2018-10-20] VITALS (23 sets, daily range): BP systolic 117–169; BP diastolic 58–85
[2018-10-20] MEDS: INSULIN REGULAR, HUMAN 100 UNIT/ML 3 ML VIAL SQ PRN ×3 (01:00→11:47)
[2018-10-20 04:34] LABS: BASOPHILS # (AUTO) 0.2 /CMM (0.0-0.2); BASOPHILS % (AUTO) 1.3 % (0.0-2.0); EOSINOPHILS % (AUTO) 2.7 % (0.0-6.0); HEMATOCRIT 31 % (39-51); HEMOGLOBIN 10.7 g/dL (13.5-17.5); LYMPHOCYTES % (AUTO) 7.7 % (20.0-44.0); MEAN CORPUSCULAR HGB CONC 35 g/dl (31.0-36.0); MEAN CORPUSCULAR VOLUME 91 fL (80-96); MONOCYTES # (AUTO) 0.8 /CMM (0.1-1.30); MONOCYTES % (AUTO) 5.8 % (2.0-12.0); NEUTROPHILS % (AUTO) 82.5 % (43.0-81.0); PLATELET COUNT (AUTO) 501 /CMM (150-450); RED BLOOD CELL COUNT(AUTO) 3.36 MIL/uL (4.5-6.0); WHITE BLOOD COUNT (AUTO) 13.3 K/uL (4.3-11.0)
[2018-10-20 04:49] LABS: CALCIUM, SERUM 8.7 mg/dL (8.5-10.1); CREATININE 1.8 mg/dL (0.6-1.3); POTASSIUM 3.4 mmol/L (3.5-5.1)
[2018-10-20] MEDS: BLOOD SUGAR DIAGNOSTIC 1 EACH STRIP IN SCH ×3 (05:49→11:48)
[2018-10-20] MEDS: hydrALAZINE HCL IV 20 MG VIAL IV PRN (05:53)
--- NOTE | 2018-10-20 06:47 | NUR ---
RN NOTES IN BED, EYES CLOSED. IN NO APPARENT DISTRESS. BREATHING EVEN AND UNLABORED. VENT SETTING WELL TOLERATED. NO SIGNIFICANT CHANGE OF CONDITION. VITAL SIGNS WNL. NO PHYSICAL MANIFESTATION OF PAIN OR DISCOMFORT. LETHARGIC, NON VERBAL. HAD 1 BOWEL MOVEMENT. FC PATENT AND INTACT DRAINING CLEAR YELLOW WITH NO FOUL ODOR URINE. KEPT CLEAN AND DRY. WILL ENDORSE TO NEXT SHIFT FOR CONTINUITY OF CARE.
[2018-10-20] MEDS: Potassium Chloride 20 MEQ in IV D5W 1,000 ML IV PRN (07:01)
--- NOTE | 2018-10-20 07:28 | NUR ---
RN NOTES RECEIVED PT ON BED, INTUBATED , OBTUNDED, TOLERATING CURRENT VENT SETTING WELL, ON TELE ST HR IN 110'S. NORTH DRINING TO GRAVITY , JEVITY AT 50CC/HR RUNNING AT 50CC/HR VIA OG TUBE, IV F D5W WITH 20MEQ KCL AT 50CC/HR RUNNING VIA R HAND IV SITE G 20 , IV SITES CLEAN, DRY AND INTACT , SR UP x3, CALL LIGHT WITHIN EASY REACH, BED LOCKED AND IN LOWEST POSITION, CONTINUE TO MONITOR .
[2018-10-20] MEDS: SUCRALFATE 1 G/10 ML UDC PO SCH ×2 (08:05→11:49)
[2018-10-20] MEDS: PANTOPRAZOLE 40 MG/PACK PACK GT SCH (08:05)
[2018-10-20] MEDS: ACETAMINOPHEN 325 MG TABLET PO PRN (08:05)
[2018-10-20] MEDS: LACTOBACILLUS RHAMNOSUS GG 1 EACH CAP.SPRINK GT SCH (08:05)
[2018-10-20] MEDS: MEROPENEM 500 MG in IV NS 0.9% 50 ML IV SCH (08:07)
--- NOTE | 2018-10-20 14:20 | NUR ---
RN NOTES FAMILY AGREED TO COMFORT CARE AND DNI/ DNR PER DR WARD ORDER .
--- NOTE | 2018-10-20 14:30 | NUR ---
RN NOTES ORDER RECEIVED FORM DR WARD TO START PT ON MORPHINE GTT AND COMFORT CARE MEASURES ONLY .
[2018-10-20] MEDS ORDERED: MORPHINE SULFATE INJ 2 MG/ML DISP.SYRIN IV ONE (15:00)
[2018-10-20] MEDS: MORPHINE SULFATE 30 MG in IV NS 0.9% 28 ML, PCA TOTAL VOLUME 1 BAG IV PRN ×6 (15:22→20:00)
--- NOTE | 2018-10-20 15:22 | NUR ---
RN NOTES MORPHINE GTT STARTED AT 5MG /HR PER MD ORDER, CONTINUE COMFORT CARE .
[2018-10-20] MEDS ORDERED: DC PROPOFOL WHEN EXTUBATED XX PRN (16:00)
--- NOTE | 2018-10-20 16:45 | NUR ---
RN NOTES PT TERMINALLY EXTUBATED PER MD ORDER , FAMILY AT BEDSIDE, MORPHINE GTT INCREASED TO 7MG /HR AT THIS TIME , CONTINUE COMFORT CARE .
--- NOTE | 2018-10-20 18:25 | NUR ---
RN NOTES PT IS IN NO APPARENT DISTRESS, ,LOOKS COMFORTABLE, WILL ENDOSE TO CABIN MAN NURSE FOR CONTINUITY OF COMFORT CARE .
--- NOTE | 2018-10-20 19:30 | NUR ---
NOTCHING MACHINE OPERATOR NOTE RECEIVED PT RESTING COMFORTABLY ON MORPHINE DRIP. BREATHING UNLABORED ON 2L OF O2 VIA NC. MORPHINE DRIP INFUSING AT 9ML/HR. PT ON COMFORT MEASURES. WILL MONITOR AND KEEP COMFORTABLE.
--- NOTE | 2018-10-20 23:30 | NUR ---
MS RN NOTES RECEIVED TRANSFER FROM ICU THIS 67 YO MALE.S/P INTUBATION ON 10/09 DUE TO CARDIAC ARREST,S/P EXTUBATION TODAY FOR COMFORT MEASURES ONLY STATUS.UNRESPONSIVE, ON MORPHINE DRIP AT 9ML,WITH RR AT 12/MINUTE
--- NOTE | 2018-10-20 23:40 | NUR ---
ROLLOFF DRIVER NOTE TRANSFERRED PT SAFELY TO ROOM 319 WITH MORPHINE DRIP STILL INFUSING. ENDORSED TO RN FOR CONTINUITY OF CARE.
--- NOTE | 2018-10-20 23:45 | NUR ---
MS RN NOTES RECEIVED TRANSFER FROM ICU THIS 67 Y.O MALE,REPORT GIVEN BY CECILIA GODINEZ,S/P EXTUBATION,ON COMFORT MEASURES ONLY,ON MORPHINE DRIP AT 9ML/HR RATE,NORTH CATH IN PLACE DRAINING YELLOWISH OUTPUT.SALINE LOCK RIGHT ARM INTACT AND PATENT.ON KCI MATTRESS FOR SKIN MANAGEMENT.VITALS SIGNS WITH IN NORMAL LIMITS.WILL CONTINUE WITH COMFORT MEASURES.
[2018-10-20] MEDS ORDERED: MORPHINE SULFATE INJ 10 MG/ML DISP.SYRIN ONE (23:57)
[2018-10-21] VITALS: BP 124/66
[2018-10-21] MEDS ORDERED: KEY,NONCONTROL,TO KEEP IN PYXI 1 EA MC ONE ×7 (00:07→23:00)
[2018-10-21] MEDS: MORPHINE SULFATE 30 MG in IV NS 0.9% 28 ML, PCA TOTAL VOLUME 1 BAG IV PRN ×18 (00:14→23:29)
[2018-10-21] MEDS ORDERED: MORPHINE SULFATE INJ 10 MG/ML DISP.SYRIN ONE (03:16)
--- NOTE | 2018-10-21 06:41 | NUR ---
MS RN NOTES STILL WITH RR 0F 12/MINUTE,NON AGONAL,MORPHINE DRIP AT 9ML/HR RATE IN PROGRESS.WILL CONTINUE WITH COMFORT MEASURES.WILL ENDORSE TO ANJEL RN FOR MARNI.
--- NOTE | 2018-10-21 07:32 | NUR ---
MS/RN OPENING NOTE PATIENT IN BED IN STABLE CONDITION AT THIS TIME, ON COMFORT MEASURES. NO ACUTE DISTRESS NOTED, NOTED WITH RR OF 12/MIN. HOB ELEVATED. ON MORPHINE BROKERAGE BRANCH MANAGER PUMP, ENDORSED FROM PREVIOUS SHIFT RN MENG, BROKERAGE BRANCH MANAGER PUMP KEYS WERE ENDORSED BY HER. AT THIS TIME PER MENG RN, MARY FROM PHARMACY WILL SEND NEW MORPHINE BAG SINCE PREVIOUS ONE IS ALMOST EMPTY. WILL CONTINUE TO MONITOR TO ENSURE SAFETY.
[2018-10-21 08:00] VITALS: BP 110/60
--- NOTE | 2018-10-21 08:02 | NUR ---
MS/RN STARTED NEW IV MORPHINE DRIP VOLUME 30ML RUNNING AT 9MLS/HR.
--- NOTE | 2018-10-21 08:27 | NUR ---
MS/RN THE CLINICAL RN PUMP KEYS UNABLE TO RETURN TO [place], KEYS GIVEN TO CHALK CUTTER THADDEUS AND HE RETURNED THE KEYS TO [place].
[2018-10-21 16:00] VITALS: BP 136/71
--- NOTE | 2018-10-21 18:43 | NUR ---
MS/RN CLOSING NOTES PATIENT IN BED IN STABLE CONDITION. OBTUNDED. RESPIRATIONS NOTED AGONAL AT THIS TIME. MORPHINE DRIP RUNNING IN DRAMATIC CRITIC. ON COMFORT MEASURES. TOLERATING WELL. WILL ENDORSE TO NEXT SHIFT FOR CONTINUITY OF CARE.
--- NOTE | 2018-10-21 19:13 | NUR ---
MS/RN ENDORSED TO ENGINE COWLING INSTALLER GRETCHEN ARROELA, MORPHINE LIME FILTER OPERATOR DRIP RUNNING AT 7MLS/HR AT THIS TIME.
--- NOTE | 2018-10-21 19:40 | NUR ---
MS/RN OPENING NOTES RECEIVED PATIENT IN BED IN STABLE CONDITION AT THIS TIME, ON COMFORT MEASURES. RESPIRATIONS AGONAL NOTED AT THIS TIME. RESPIRATIONS 16/MIN. HOB ELEVATED. MORPHINE CUSTOMS INSPECTOR PUMP, DRIP RUNNING AT 7 MLS/HR AT THIS TIME. WILL CONTINUE TO MONITOR PATIENT.
[2018-10-21 20:00] VITALS: BP 139/78
--- NOTE | 2018-10-21 20:10 | NUR ---
MS/RN NOTES RICARDO FROM PHARMACY CALLED TO ASK ABOUT MORPHINE AVAILABILITY. NO MORPHINE BAGS AVAILABLE IN [place]. RICARDO STATES HE WILL MAKE LITTLE BAGS OF MORPHINE TO BRING UP TO [place], [email or web address].
--- NOTE | 2018-10-21 20:50 | NUR ---
MS/RN NOTES NAME IS MOUNA, NOT RICARDO, FROM PHARMACY. 3 MORPHINE BAGS WERE DELIVERED. PLACED IN [place] IN LOCKED BOX.
[2018-10-22] MEDS ORDERED: KEY,NONCONTROL,TO KEEP IN PYXI 1 EA MC ONE ×5 (03:51→18:21)
[2018-10-22] MEDS: MORPHINE SULFATE 30 MG in IV NS 0.9% 28 ML, PCA TOTAL VOLUME 1 BAG IV PRN ×6 (04:06→08:38)
--- NOTE | 2018-10-22 06:38 | NUR ---
MS/RN CLOSING NOTES PATIENT IN BED, OBTUNDED. AGONAL BREATHING STILL NOTED. MORPHINE DRIP AT 7ML/HR RATE, PATIENT TOLERATING WELL. LAST NORTH CATH OUTPUT: 900 ML. PATIENT TURNED EVERY 2 HOURS WITH CARE. WILL CONTINUE WITH COMFORT MEASURES. WILL ENDORSE TO AM NURSE FOR CONTINUITY OF CARE.
--- NOTE | 2018-10-22 07:30 | NUR ---
RN MS NOTES OPENING Patient remains on a morphine drip, 9 mg per hour, increased dosage coming from 7mg per hour. right arm and right forearm remains patent at this time. Bed at the lowest setting, side rails up x2. will continue to monitor patient.
[2018-10-22 08:19] VITALS: BP 136/76
[2018-10-22] MEDS: MORPHINE SULFATE PF DRIP 250 MG in IV D5W 240 ML IV PRN (13:12)
[2018-10-22 16:00] VITALS: BP 143/81
--- NOTE | 2018-10-22 18:07 | NUR ---
Patient remains on 2L o2 nasal cannula, no sob noted. Patient remains on comfort measure, morphine drip 9mg/hour. Right hand remains patent at this time. Patient seems comfortable on his bed. Patient turned and cleaned. Bed at the lowest setting, side rails up x2. Will give report to RN SHASHI for MARNI bedside.
--- NOTE | 2018-10-22 19:40 | NUR ---
RN NOTES PATIENT ON 02 2LPM VIA NC.
--- NOTE | 2018-10-22 19:40 | NUR ---
RN NOTES RECEIVED PATIENT IN BED IN STABLE CONDITION AT THIS TIME, EYES CLOSE,ON COMFORT MEASURES. RESPIRATIONS SHALLOW NOTED AT THIS TIME. RESPIRATIONS 20/MIN. SATING 91%. SAFETY MEASURES IN PLACE, HOB ELEVATED. MORPHINE HAT CUTTER PUMP, DRIP RUNNING AT 9 MLS/HR AT THIS TIME. WILL CONTINUE TO MONITOR PATIENT.
[2018-10-22 20:00] VITALS: BP 142/86
--- NOTE | 2018-10-23 06:00 | NUR ---
RN NOTES MORPHINE DRIP INCREASED FROM 9MG/HR TO 10MG/HR PER CLINICAL ASSESSMENT. PATIENT RESTING COMFORTABLY, WITH AGONAL BREATHING 16 -20/MIN.
--- NOTE | 2018-10-23 07:16 | NUR ---
RN NOTES ALL NEEDS ATTENDED ON COMFORT MEASURES,IV ACCESS INTACT AND PATENT, NORTH CATHETER DRAINING TO A CLEAR YELLOW URINE OUTPUT. ENDORSED TO AM NURSE FOR CONTINUITY OF CARE.
--- NOTE | 2018-10-23 07:17 | NUR ---
RN MS OPENING NOTES Patient received on comfort measure at this time, some agonal breathing noted. Patient remains on Morphine 10 mg/hour at this time. RFA #20 remains patent. Bed at the lowest setting, side rails up x2, patient remains comfortable lying on his bed.
[2018-10-23 08:00] VITALS: BP 143/77
[2018-10-23] MEDS ORDERED: KEY,NONCONTROL,TO KEEP IN PYXI 1 EA MC ONE ×2 (10:29→13:25)
--- NOTE | 2018-10-23 10:31 | NUR ---
RN MS NOTES Continuos ASSOCIATE PROFESSOR OF BIOLOGY pump now set at 11 mg/hour of morphine.
--- NOTE | 2018-10-23 15:09 | NUR ---
rn ms notes Report given to neil GRIDER
--- NOTE | 2018-10-23 15:23 | NUR ---
MS RN NOTES-- RECEIVED REPORT FROM GRETCHEN THOMPSON. RECEIVED PT LAYING IN BED WITH HOB ELEVATED. PT IS RESTING COMFORTABLY, CURRENTLY ON COMFORT MEASURES. PT IS AFEBRILE. RESPIRATIONS ARE EVEN AND UNLABORED, NOT IN ANY ACUTE DISTRESS NOTED. NO FACIAL GRIMACING NOTED. IV SITE TO RFA INTACT, NO INFILTRATION NOTED. DRESSING KEPT CLEAN AND DRY. SAFETY MEASURES ARE IN PLACE. FAMILY AT BEDSIDE. WILL MONITOR THROUGHOUT SHIFT FOR CONTINUITY OF CARE.
[2018-10-23 15:33] VITALS: BP 130/82
[2018-10-23] MEDS: MORPHINE SULFATE PF DRIP 250 MG in IV D5W 240 ML IV PRN (16:21)
--- NOTE | 2018-10-23 16:21 | NUR ---
MS RN NOTES-- NEW MORPHINE IV BAG HUNG AND STARTED AT 12MG/HR.
--- NOTE | 2018-10-23 18:35 | NUR ---
MS/COMFORT MEASURES RN CLOSING NOTES PT REMAINS OBTUNDED, UNRESPONSIVE. PT APPEARS TO BE COMFORTABLE. RESPIRATIONS ARE EVEN AND UNLABORED, NOT IN ANY ACUTE DISTRESS NOTED. NO FACIAL GRIMACING OR MOANING. IV ACCESS TO RFA INTACT, NO INFILTRATION NOTED. DRESSING KEPT CLEAN AND DRY. MORPHINE DRIP RUNNING AT 12MG/HR. SAFETY MEASURES ARE IN PLACE. WILL MONITOR THROUGHOUT SHIFT FOR CONTINUITY OF CARE.
--- NOTE | 2018-10-23 18:56 | NUR ---
MS RN NOTES-- PT APPEARS TO BE COMFORTABLE, NOT IN ANY DISTRESS. WILL ENDORSE TO NEXT SHIFT FOR CONTINUITY OF CARE.
--- NOTE | 2018-10-23 19:15 | NUR ---
MS RN NOTES-- PT APPEARS TO BE COMFORTABLE. BEDSIDE ENDORSEMENT GIVEN TO GRETCHEN HENDRICKS.
--- NOTE | 2018-10-23 19:28 | NUR ---
RN NOTES RECEIVED PATIENT REMAINS OBTUNDED, UNRESPONSIVE. PATIENT APPEARS TO BE COMFORTABLE. RESPIRATIONS ARE EVEN AND UNLABORED, NOT IN ANY ACUTE DISTRESS NOTED. NO FACIAL GRIMACING OR MOANING. IV ACCESS TO RFA INTACT, NO INFILTRATION NOTED. NORTH CATHETER INTACT DRAINING TO A YELLOW URINE OUTPUT DRESSING KEPT CLEAN AND DRY. MORPHINE DRIP RUNNING AT 12MG/HR. SAFETY MEASURES ARE IN PLACE. WILL MONITOR THROUGHOUT SHIFT FOR CONTINUITY OF CARE.
[2018-10-23 20:00] VITALS: BP 135/76
[2018-10-23 20:15] VITALS: BP 135/76
--- NOTE | 2018-10-24 06:34 | NUR ---
RN NOTES ALL NEEDS ATTENDED, PATIENT REMAINS OBTUNDED, UNRESPONSIVE. ON COMFORT MEASURES, PATIENT APPEARS TO BE COMFORTABLE. RESPIRATIONS ARE EVEN AND UNLABORED, NOT IN ANY ACUTE DISTRESS NOTED. NO FACIAL GRIMACING OR MOANING. IV ACCESS TO RFA INTACT, NO INFILTRATION NOTED. NORTH CATHETER INTACT DRAINING TO A YELLOW URINE OUTPUT DRESSING KEPT CLEAN AND DRY. MORPHINE DRIP RUNNING AT 14MG/HR. SAFETY MEASURES ARE IN PLACE. WILL ENDORSE TO AM NURSE FOR CONTINUITY OF CARE.
[2018-10-24 07:59] VITALS: BP 134/67
--- NOTE | 2018-10-24 08:00 | NUR ---
RN NOTES RECEIVED PATIENT IN THE BED ON DYING COMFORT MEASURE. PATIENT OBTUNDED LEVEL OF CONSCIOUSNESS AND CAN NOT FULLY AROUSE. PATIENT ON O2-2L-NC, V/S TAKEN BP 134/67,P-115, R-22, O2-89 ,T-98.7, PATIENT ON MORPHINE DRIP 14ML/HR ON RIGHT FA INTACT. ASSIST TURN AND REPOSTION Q2 HR. PATIENT ON AIR MATTRESS, CALL LIGHT WITHIN TO REACH, ASSIST TURN AND REPOSTION Q 2 HR. CONTINUED MONITORING.
--- NOTE | 2018-10-24 10:00 | NUR ---
rn notes PATIENT STILL SHALLOW COURSE BREATHING, USING ACCESSORY MUSCLES, ON O2-2L, INFUSING MORPHINE DRIP 14 ML/HR INTACT. ASSIST TURN AND REPOSTION Q 2 HR. PATIENT ON COMFORT CARE. F/C DRAINING YELLOW OUTPUT, V/S TAKEN BP 130/80, P-100,R-22, O2-89. CONTINUED MONITORING.
--- NOTE | 2018-10-24 13:00 | NUR ---
rn notes patent d/c acute impatient hospice care.
== END 2018-10-24 14:20 | disposition hospice, inpatient (51) | DRG 853 ==
LOC: ER 19:50 → ICU 21:01 → MED 10-20 23:29
PROVIDERS: ADMIT Internal Medicine; ATTEND Nurse Practitioner Acute Care
PROC: 5A1955Z Respiratory Ventilation, Greater than 96 Consecutive Hours (ICD-10-PCS; principal; 2018-10-09)
PROC: 0BH18EZ Insertion of Endotracheal Airway into Trachea, Via Natural or Artificial Opening Endoscopic (ICD-10-PCS; 2018-10-09)
PROC: 5A2204Z Restoration of Cardiac Rhythm, Single (ICD-10-PCS; 2018-10-09)
PROC: 0SH Lower Joints, Insertion (ICD-10-PCS; 2018-10-09)
PROC: 0DB78ZX Excision of Stomach, Pylorus, Via Natural or Artificial Opening Endoscopic, Diagnostic (ICD-10-PCS; 2018-10-12)
PROC: 06H03DZ Insertion of Intraluminal Device into Inferior Vena Cava, Percutaneous Approach (ICD-10-PCS; 2018-10-13)
DX: A41.9 Sepsis, unspecified organism (principal); I46.9 Cardiac arrest, cause unspecified; I21.4 Non-ST elevation (NSTEMI) myocardial infarction; K72.00 Acute and subacute hepatic failure without coma; E43 Unspecified severe protein-calorie malnutrition; J96.02 Acute respiratory failure with hypercapnia; J69.0 Pneumonitis due to inhalation of food and vomit; J96.01 Acute respiratory failure with hypoxia; N17.0 Acute kidney failure with tubular necrosis; G92 Toxic encephalopathy; G93.1 Anoxic brain damage, not elsewhere classified; E87.4 Mixed disorder of acid-base balance; J98.11 Atelectasis; J44.1 Chronic obstructive pulmonary disease with (acute) exacerbation; E87.0 Hyperosmolality and hypernatremia; I82.512 Chronic embolism and thrombosis of left femoral vein; I82.532 Chronic embolism and thrombosis of left popliteal vein; E87.6 Hypokalemia; D69.6 Thrombocytopenia, unspecified; D64.9 Anemia, unspecified; Z51.5 Encounter for palliative care; N18.9 Chronic kidney disease, unspecified; E11.65 Type 2 diabetes mellitus with hyperglycemia; K74.60 Unspecified cirrhosis of liver; K29.70 Gastritis, unspecified, without bleeding; K22.8 Other specified diseases of esophagus; K20.9 Esophagitis, unspecified; E61.1 Iron deficiency; K29.80 Duodenitis without bleeding; Z98.890 Other specified postprocedural states
CPT/HCPCS: 31720; 36415; 36600; 70450-TC; 71045-TC; 74018; 76700-TC; 76770-TC; 80048-TC; 80053-TC; 80076-TC; 80202-TC; 81000-TC; 82271; 82272-TC; 82570-TC; 82728-TC; 82803-TC; 82962-TC; 83540-TC; 83605-TC; 83735-TC; 83880; 84100-TC; 84300-TC; 84443-TC; 84478-TC; 84484-TC; 85025-TC; 85027-TC; 85610-TC; 85730-TC; 86850-TC; 87040-TC; 87070-TC; 87081-TC; 87086-TC; 88305-TC; 88313-TC; 88342; 92950-TC; 93307-TC; 93970-TC; 94002-TC; 94003-TC; 94760-TC; 95819-TC; 99082-TC; A4216; C1769; C1880; G0378; G0480; J0171; J0360; J0690; J1644; J1650; J1815; J2185; J2250; J2270; J2274; J2405; J2543; J2704; J2765; J3010; J3370; J3480; J3490; J7030; J7050; J7060; J7070; P9047; Q9967

== ENCOUNTER 2018-10-24 14:36 | Inpatient (IN) | payer OTHER ==
[~2018-10-24] VITALS: Ht 167.6 cm; Wt 75.7 kg
[~2018-10-24 14:36] MED LIST: FENO145T35 PO
[2018-10-24 15:02] VITALS: BP 139/69
--- NOTE | 2018-10-24 15:05 | NUR ---
RECOATING MACHINE OPERATOR NOTES PATIENT ADMITTED ON HOSPICE CARE AT THIS TIME ON Dx OF RESPIRATORY FAILURE . PATIENT OBTUNDED UNABLE TO AROUSE, SHALLOW AND COURSE BREATH USING ACCESSORY MUSCLES.PATIENT ON O2-2L NC. V/S TAKEN BP 139/69, P-110, R-22, O2-92 NC, T-97.7. F/C DARNING YELLOW OUTPUT. NEEDS ATTENDED AND ANTICIPATED. PATIENT TURN AND REPOSTION Q 2 HR. HOSPITALIST AWARE OF NEW ADMISSION AND MEDICATION. CALL LIGHT WITHIN TO REACH. CONTINUED MONITORING.
[2018-10-24] MEDS ORDERED: ACETAMINOPHEN 650 MG/SUPP.RECT RC PRN (15:30)
[2018-10-24] MEDS: MORPHINE SULFATE PF DRIP 250 MG in IV D5W 240 ML IV PRN (16:20)
--- NOTE | 2018-10-24 16:20 | NUR ---
RN NOTES STARTED MORPHINE DRIPS 14 ML/HR ON ON RIGHT FA INTACT, ASSIST TURN AND REPOSTION Q 2 HR, CONTINUED MONITORING.
[2018-10-24 18:00] VITALS: BP 156/76
[2018-10-24] MEDS: SCOPOLAMINE HBR 1 EA PATCH.TD72 TD SCH (18:09)
--- NOTE | 2018-10-24 18:30 | NUR ---
RN NOTES PATIENT ON SHALLOW BREATHING USING ACCESSORY MUSCLES, V/S TAKEN BP 156/76, P-110, R-16, O2-94 ON NC, T-97,5, OBTUNDED, UNAROUSABLE. KEEP HOB 0N 35 DEGREE, ASSIST TURN AND REPOSTION Q 2 HR, F/C DARNING YELLOW OUTPUT. MORAINE DRIP ON RIGHT FA INTACT ON 14ML/HR. CALL LIGHT WITHIN TO REACH. SAFETY PRECAUTION MAINTAINED ALL THE TIME.
--- NOTE | 2018-10-24 18:30 | NUR ---
RN NOTES ENDORSED ONCOMING NURSE FOLLOW PLAN OF CARE.
--- NOTE | 2018-10-24 19:50 | NUR ---
RN OPENING NOTES RECEIVED PATIENT ON SHALLOW BREATHING WITH THE USE OF ACCESSORY MUSCLES. PATIENT IS OBTUNDED, UNAROUSABLE. COMFORT MEASURES IMPLEMENTED. HOB UP. ON MORPHINE DRIP ON RIGHT FA INTACT RUNNING AT 14ML/HR. NORTH CATHETER INTACT DRAINING YELLOW URINE. SAFETY PRECAUTIONS IMPLEMENTED; CALL LIGHT WITHIN REACH, BED LOWEST POSITION, BED LOCKED, SIDE RAILS UP X2. WILL HANDLE PATIENT WITH CARE. WILL CONTINUE TO MONITOR PATIENT.
[2018-10-24 20:07] VITALS: BP 155/75
[2018-10-24] MEDS ORDERED: KEY,NONCONTROL,TO KEEP IN PYXI 1 EA MC ONE (20:38)
--- NOTE | 2018-10-25 00:18 | NUR ---
RN NOTES CURRENT VITALS: 147/70, PULSE 112, TEMP 97.5 AXILLARY, RESPIRATIONS 16, O2 SAT 95%.
[2018-10-25 06:19] VITALS: BP 146/71
--- NOTE | 2018-10-25 06:48 | NUR ---
RN CLOSING NOTES PATIENT OBTUNDED. SHALLOW BREATHING NOTED USING ACCESSORY MUSCLES. UNAROUSABLE. HOB UP 35 DEGREES. PATIENT TURNED AND REPOSITIONED EVERY 2 HOURS WITH GREAT CARE. NORTH CATHETER DRAINING YELLOW URINE. MORPHINE DRIP STILL RUNNING AT 14 ML/HR, INTACT AND PATENT. TOLERATING WELL. PATIENT KEPT CLEAN, DRY, AND COMFORTABLE. SAFETY PRECAUTIONS IMPLEMENTED AT ALL TIMES; CALL LIGHT WITHIN REACH, BED LOWEST POSITION, BED LOCKED, SIDE RAILS UP X2. WILL ENDORSE TO DAY RN FOR CONTINUITY OF CARE.
--- NOTE | 2018-10-25 07:27 | NUR ---
RN NOTES CARE ENDORSED TO GRETCHEN DAY AND GRETCHEN GARCIA. REPORT GIVEN TO BOTH RN'S. CARE PRIMARILY FOR GRETCHEN AMOR.
--- NOTE | 2018-10-25 07:58 | NUR ---
MS RN RECEIVED A HOSPICE PATIENT ON MORPHINE DRIP, LOOKS COMFORTABLE ON BED, NO DISTRESS NOTED, DRIP ON 14MG/HR, W/ NORTH CATHETER TO GRAVITY W/ YELLOWISH COLOR URINE, WILL MONITOR PATIENT'S CONDITION.
[2018-10-25 08:00] VITALS: BP 148/73
[2018-10-25] MEDS ORDERED: KEY,NONCONTROL,TO KEEP IN PYXI 1 EA MC ONE ×2 (11:42→18:47)
[2018-10-25] MEDS: MORPHINE SULFATE PF DRIP 250 MG in IV D5W 240 ML IV PRN (11:59)
--- NOTE | 2018-10-25 12:00 | NUR ---
MS RN PATIENT LOOKS NOT COMFORTABLE BREATHING, RATE INCREASED FROM 14 - 16 AND CHANGED BAG AT THIS TIME, RX NOTIFIED.
[2018-10-25 16:00] VITALS: BP 144/79
--- NOTE | 2018-10-25 16:00 | NUR ---
MS RN PATIENT LOOKS COMFORTABLE.
--- NOTE | 2018-10-25 19:00 | NUR ---
ms learning and development associate at bedside all needs attended.
--- NOTE | 2018-10-25 19:55 | NUR ---
RN OPENING NOTES RECEIVED REPORT FROM MT GARRETT RN. Pt IS ON HOSPICE COMFORT CARE. IV ACCESS ON RHAND #20G & LUZMA #20G. ON CONTINUOUS MORPHINE DRIP CURRENT RATE SET AT 16MG/HR. SAFETY MEASURES IN PLACE. BED LOW, LOCKED, HOB ELEVATED, SIDE RAILS UP. COMFORT MEASURES IN PLACE. WILL CONTINUE TO MONITOR Pt's CONDITION AND SAFETY THROUGHOUT THE NIGHT.
[2018-10-25 20:00] VITALS: BP 149/73
[2018-10-25 20:31] VITALS: BP 149/73
[2018-10-26] MEDS ORDERED: KEY,NONCONTROL,TO KEEP IN PYXI 1 EA MC ONE ×2 (04:25→04:41)
[2018-10-26] MEDS: MORPHINE SULFATE PF DRIP 250 MG in IV D5W 240 ML IV PRN ×2 (04:57→20:13)
--- NOTE | 2018-10-26 05:00 | NUR ---
RN NOTES STARTED ON NEW MORPHINE DRIP BAG. INCREASED DOSE RATE TO 18ML/HR.
--- NOTE | 2018-10-26 07:03 | NUR ---
RN CLOSING NOTES NO SIGNIFICANT CHANGES IN Pt's CONDITION. Pt REMAINS ON CONTINUOUS MORPHINE DRIP @18ML/HR, INFUSING WELL ON RFA #20G. ALL NEEDS MET AND ATTENDED TO. NORTH CATHETER IN PLACE, DRAINING WELL WITH <500ML URINE OUTPUT. SAFETY MEASURES IN PLACE. WILL ENDORSE TO DAYSHIFT RN FOR Pt's MARNI.
--- NOTE | 2018-10-26 07:19 | NUR ---
RN OPENING NOTE REPORT RECEIVED FROM NIGHT RN, VALERIE, AT THIS TIME. PT NOTED TO BE ON HOSPICE/COMFORT CARE. NOTED TO HAVE IV ACCESS IN RIGHT HAND AND RIGHT FOREARM. NEW MORPHINE DRIP BAG STARTED BY NIGHT RN THIS AM WITH RATE CURRENTLY AT 18 ML/HR. BREATHING NOTED TO BE SHALLOW, SAFETY PRECAUTIONS IN PLACE, SIDE RAILS UP X2, HOB ELEVATED, WILL CONTINUE TO MONITOR PT CONDITION THROUGHOUT SHIFT
[2018-10-26 08:00] VITALS: BP 135/89
--- NOTE | 2018-10-26 09:57 | NUR ---
RN NOTE PT CURRENTLY LOOKS COMFORTABLE IN BED, BREATHING NOTED TO BE SHALLOW WITH USE OF SOME ACCESSORY MUSCLES AT THIS TIME. WILL CONTINUE TO MONITOR
--- NOTE | 2018-10-26 13:36 | NUR ---
RN NOTE PT APPEARS COMFORTABLE IN BED, BREATHING STILL SHALLOW WITH USE OF ACCESSORY MUSCLES. WILL MONITOR ACCORDINGLY
[2018-10-26 16:00] VITALS: BP 135/76
--- NOTE | 2018-10-26 18:13 | NUR ---
RN NOTE PT CLEANED AND REPOSITIONED, BREATHING STILL SHALLOW BUT APPEARS COMFORTABLE, WILL CONTINUE TO MONITOR
--- NOTE | 2018-10-26 18:47 | NUR ---
RN CLOSING NOTE PT IN BED IN LOWEST AND LOCKED POSITION WITH SIDE RAILS UP X2, OBTUNDED, ON MORPHINE DRIP AT 18 ML/HR, NO SIGNIFICANT CHANGES THROUGHOUT SHIFT, BREATHING STILL NOTED TO BE SHALLOW WITH USE OF ACCESSORY MUSCLE NOTED, IV IS PATENT AND INTACT, NORTH CATH IN PLACE WITH NO URINE DRAINAGE NOTED BUT PER W[employer] RESOURCE PROJECT MANAGER PT DID HAVE ONE VOID, SAFETY PRECAUTIONS AND COMFORT MEASURES IN PLACE, ALL NEEDS ATTENDED TO, WILL ENDORSE TO NIGHT RN FOR MARNI.
--- NOTE | 2018-10-26 19:05 | NUR ---
RN OPENING NOTES RECEIVED PATIENT IN BED EYES OPEN , OBTUNDED ,RESPIRATIONS SHALLOW WITH ACCESSORY MUSCLE USE, APPEARS TO BE COMFORTABLE AT THIS TIME. RECEIVED PATIENT ON MORPHINE DRIP CURRENTLY RUNNING AT 18ML/HR (18MG). IV SITE TO RIGHT HAND #20 SL INTACT AND PATENT, AND RIGHT FA #20 INTACT AND PATENT, NO REDNESS, NO INFILTRATION PRESENT, PATIENT REMAINS NPO, COMFORT MEASURES PROVIDED, CURRENTLY ON 02 VIA NC 4L, NORTH CATHETER INTACT,DRAINING WILL CONTINUE TO MONITOR URINE OUTPUT , ALL NEEDS ATTENDED AT THIS TIME WILL CONTINUE TO MONITOR FOR ANY CHANGES.
[2018-10-26 20:00] VITALS: BP 103/63
--- NOTE | 2018-10-26 20:13 | NUR ---
RN NOTES- COMFORT CARE HOSPICE RECEIVED MORPHINE BAG INFUSING AT 18ML/HR. (18MG) AT THIS TIME WASTED 13CC OF PREVIOUS BAG AND VERIFIED WITH ANOTHER RN , ISMAEL, DISCARDED WASTE IN WASTE BIN. YELLOW FORM SIGNED AND PLACED FOR PHARMACY TEMPLATE INSPECTOR. AT THIS TIME CHANGED MORPHINE BAG AND VERIFIED WITH RN, ISMAEL. ALSO VERIFIED RATE TO INFUSE WITH CHARGE NURSE AND TO CONTINUE AT 18MG.
--- NOTE | 2018-10-26 20:50 | NUR ---
RN NOTES - RECEIVED CALL FROM NALINI ESTHETICIAN/SPA COORDINATOR FROM HOSPICE, MADE ESTHETICIAN/SPA COORDINATOR AWARE OF CURRENT DOSE. PER NURSE NALINI ESTHETICIAN/SPA COORDINATOR THEY WILL UPDATE MD AND FOLLOW UP IN AM .
--- NOTE | 2018-10-27 06:28 | NUR ---
RN MS NOTES TYLENOL RN SUPPOSITORY GIVEN NOTED TEMPERATURE 99.7 AND ASSESSED A SECOND TIME AT 100.0 PRN TYLENOL SUPPOSITORY GIVEN. COOLING MEASURE PROVIDED, BED BATH GIVEN REPOSITIONED, WILL CONTINUE TO MONITOR FOR EFFECTIVENESS.
--- NOTE | 2018-10-27 06:50 | NUR ---
RN CLOSING NOTES PATIENT IN BED EYES OPEN , OBTUNDED ,RESPIRATIONS SHALLOW WITH ACCESSORY MUSCLE USE, APPEARS TO BE COMFORTABLE AT THIS TIME. ON MORPHINE DRIP CURRENTLY RUNNING AT 18ML/HR (18MG). IV SITE TO RIGHT HAND #20 SL INTACT AND PATENT, AND RIGHT FA #20 INTACT AND PATENT, NO REDNESS, NO INFILTRATION PRESENT, PATIENT REMAINS NPO, COMFORT MEASURES PROVIDED, CURRENTLY ON 02 VIA NC 4L, NORTH CATHETER INTACT,DRAINING 20 CC ONLY , ALL NEEDS ATTENDED AT THIS TIME WILL CONTINUE TO MONITOR REPOSITIONED FOR COMFORT MEPILEX APPLIED TO SACRAL FROM SKIN AND WOUND MANAGEMENT AND PREVENTION , PATIENT REMAINS COMFORTABLE AT THIS TIME, OFFLOADED TO THE SIDE, VS AT THIS TIME 104/52,98,81%02 SAT AT 4L, TEMP 99.7 , RESPIRATIONS 16. WILL ENDORSE TO NEXT SHIFT FOR CONTINUITY OF CARE.
--- NOTE | 2018-10-27 07:10 | NUR ---
RN OPENING NOTES RECEIVED PATIENT OBTUNDED.UNAROUSABLE. HOB UP 35 DEGREES. NORTH CATHETER DRAINING YELLOW URINE. MORPHINE DRIP STILL RUNNING AT 18 ML/HR, INTACT AND PATENT. TOLERATING WELL. SAFETY PRECAUTIONS IN PLACE. CALL LIGHT WITHIN REACH, BED LOWEST POSITION, BED LOCKED, SIDE RAILS UP X2. WILL CONTINUE TO MONITOR ACCORDINGLY.
[2018-10-27 08:00] VITALS: BP 101/61
[2018-10-27] MEDS ORDERED: KEY,NONCONTROL,TO KEEP IN PYXI 1 EA MC ONE ×3 (11:29→21:43)
[2018-10-27] MEDS: MORPHINE SULFATE PF DRIP 250 MG in IV D5W 240 ML IV PRN (11:31)
--- NOTE | 2018-10-27 15:35 | NUR ---
RN NOTES PATIENT SEEN BY HOSPICE NURSE BANG. RECEIVED NEW ORDERS FROM DR SCOTT FOR MORPHINE. NOTED AND CARRIED OUT.
[2018-10-27 16:00] VITALS: BP 84/50
[2018-10-27] MEDS: SCOPOLAMINE HBR 1 EA PATCH.TD72 TD SCH (17:14)
--- NOTE | 2018-10-27 19:00 | NUR ---
RN OPENING NOTES RECEIVED PATIENT OBTUNDED.UNAROUSABLE. HOB UP 35 DEGREES. NORTH CATHETER DRAINING YELLOW URINE. MORPHINE DRIP STILL RUNNING AT 18 ML/HR, INTACT AND PATENT. TOLERATING WELL. SAFETY PRECAUTIONS IN PLACE. CALL LIGHT WITHIN REACH, BED LOWEST POSITION, BED LOCKED, SIDE RAILS UP X2. KEPT CLEAN , DRY AND COMFORTABLE. REPOSITIONED EVERY 2 HOURS AND NEEDED. WILL ENDORSE TO NIGHT NURSE FOR CONTINUITY OF CARE.
--- NOTE | 2018-10-27 19:00 | NUR ---
RN OPENING NOTES RECEIVED PATIENT IN BED EYES OPEN , OBTUNDED ,RESPIRATIONS SHALLOW WITH ACCESSORY MUSCLE USE, APPEARS TO BE COMFORTABLE AT THIS TIME. RECEIVED PATIENT ON MORPHINE DRIP CURRENTLY RUNNING AT 18ML/HR (18MG). IV SITE TO RIGHT HAND #20 SL INTACT AND PATENT, AND RIGHT FA #20 INTACT AND PATENT, NO REDNESS, NO INFILTRATION PRESENT, PATIENT REMAINS NPO, COMFORT MEASURES PROVIDED, CURRENTLY ON 02 VIA SIMPLE MASK 5L FOR COMFORT , NORTH CATHETER INTACT,WILL CONTINUE TO MONITOR URINE OUTPUT , ALL NEEDS ATTENDED AT THIS TIME WILL CONTINUE TO MONITOR FOR ANY CHANGES.
[2018-10-27 20:00] VITALS: BP 76/45
--- NOTE | 2018-10-27 20:40 | NUR ---
RN MS NOTES NOTED PATIENT WITH INCREASED RESPIRATIONS AT 22 SHALLOW BREATHING AND AT TIMES PAUSES, SP02 86% ON 5L VIA SIMPLE MASK. FOR COMFORT MORPHINE INCREASE TO 19MG ,19ML/HR, VERIFIED WITH CHARGE. WILL CONTINUE TO MONITOR FOR COMFORT MEASURES.
[2018-10-28] MEDS: MORPHINE SULFATE PF DRIP 250 MG in IV D5W 240 ML IV PRN (01:57)
--- NOTE | 2018-10-28 01:57 | NUR ---
RN MS NOTES MORPHINE DRIP CHANGED AT THIS TIME AND VERIFIED, WITNESSED WITH CHARGE NURSE, RATE IS 19MG, 19ML/HR PREVIOUS BAG WASTED, WITNESSED AND VERIFIED WITH CHARGE, 30CC OBTAINED. YELLOW FORM SIGNED AND PLACE IN PHARMACY BOX.
--- NOTE | 2018-10-28 05:45 | NUR ---
GRETCHEN ALVARENGA NOTES UPON ASSESSMENT NOTED PATIENT PULSELESS, PULSE NOT AUDIBLE OR PALPABLE,NO RESPIRATIONS PRESENT, AND CONFIRM WITH CHARGE NURSE AT 0545. Addendum: 10/28/18 at 0728 by BUNNY FOX RN WALT MORENO CONFIRM TIME OF PASSING 0545
--- NOTE | 2018-10-28 05:50 | NUR ---
RN MS NOTES 0550 CALLED AND SPOKE TO PRUDENCE RN FROM ASSIGNED HOSPICE MADE AWARE PATIENT HAS AND TIME IS 0545. PER PRUDENCE, HE WILL NOTIFY FAMILY/BROTHER RIYA OF EVENT AND WILL ALSO CONTACT MORTUARY -[employer].
--- NOTE | 2018-10-28 05:52 | NUR ---
GRETCHEN VEGA, HOSPITALIST MADE AWARE RUN CAT BREEDER MILI SHANKAR AWARE. Addendum: 10/28/18 at 0745 by BUNNY FOX RN CLARIFICATION RN CAT BREEDER MADE AWARE
--- NOTE | 2018-10-28 06:00 | NUR ---
RN MS NOTES [facility] CALLED TO NOTIFY OF PASSING.
--- NOTE | 2018-10-28 06:05 | NUR ---
RN MS NOTES RECEIVED CALL FROM HOSPICE NURSE PRUDENCE STATES RIYA OLIVER BROTHER AWARE OF PASSING AND MORTUARY [employer] IS ALSO AWARE. AND WILL BE HERE IN ABOUT 1HR 1/2. PER HOSPICE NURSE FAMILY WILL NOT BE COMING TO HOSPITAL.
--- NOTE | 2018-10-28 06:13 | NUR ---
RN MS NOTES CALLED AND SPOKE TO RIYA PAZER [phone] TO OBTAIN VERBAL CONSENT TO RELEASE THE BODY TO MORTUARY. CONSENT OF RELEASE VERBALLY GIVEN AND WITNESSED BY CHARGE NURSE TIFFANIE AT THIS TIME, FAMILY WILL NOT BE COMING TO FACILITY.
--- NOTE | 2018-10-28 06:15 | NUR ---
RN MS NOTES [facility]MORT[facility] CARE PROVIDED NORTH CATHETER REMOVED, TAGS PLACED ON LEFT TOE, WRIST BAND IN PLACE FOR VERIFICATION , TAG PLACED ON OUTSIDE OF BAG AND PATIENT HAS A PERSONAL NECKLACE A CROSS, THAT WAS PLACED IN A BAG WITH PATIENT TAG FOR PERSONAL ITEMS PLACED OUTSIDE OF BAG AWAITING TO GIVE TO MORTUARY. AT THIS TIME AWAITING FOR MORTUARY ARRIVAL AND WILL ENDORSE TO NEXT SHIFT FOR CONTINUITY OF CARE.
--- NOTE | 2018-10-28 06:20 | NUR ---
RN NOTES MORPHINE DRIP WASTED AND WITNESS WITH GRETCHEN GIRON, DISPOSED 210CC IN NARCOTIC WASTE BIN IN MED ROOM. FORM SIGNED BY 2 RN'S AND PLACED FOR PHARMACY.
--- NOTE | 2018-10-28 07:00 | NUR ---
RN MS NOTES MORTUARY HAS NOT ARRIVED, ENDORSE TO ONCOMING RN FOR CONTINUITY OF CARE.
--- NOTE | 2018-10-28 08:10 | NUR ---
MS RN NOTES PATIENT BODY PICKED UP BY [facility] OF [facility]. PATIENT BELONGING LACE NECKLACE WITH CROSS PENDANT GIVEN TO THE CLINICAL EDUCATION ASSISTANT SOO PLACED AT THE SAFE. CALLED BROTHER RIYA MADE AWARE SAID THEY WILL COME TO MANAGER FLOOR BELONGING.
== END 2018-10-28 05:45 | disposition expired | DRG 871 ==
LOC: HOSPICE 14:36
PROVIDERS: ADMIT Internal Medicine; ATTEND Internal Medicine
DX: A41.9 Sepsis, unspecified organism (principal); J69.0 Pneumonitis due to inhalation of food and vomit; J96.02 Acute respiratory failure with hypercapnia; E43 Unspecified severe protein-calorie malnutrition; N17.0 Acute kidney failure with tubular necrosis; I21.4 Non-ST elevation (NSTEMI) myocardial infarction; G93.1 Anoxic brain damage, not elsewhere classified; E87.0 Hyperosmolality and hypernatremia; E87.2 Acidosis; I82.512 Chronic embolism and thrombosis of left femoral vein; I82.532 Chronic embolism and thrombosis of left popliteal vein; Z51.5 Encounter for palliative care; I46.9 Cardiac arrest, cause unspecified; F09 Unspecified mental disorder due to known physiological condition; D69.6 Thrombocytopenia, unspecified; I25.2 Old myocardial infarction; E87.6 Hypokalemia; Z95.828 Presence of other vascular implants and grafts; K20.9 Esophagitis, unspecified; K29.70 Gastritis, unspecified, without bleeding; K29.80 Duodenitis without bleeding; D63.8 Anemia in other chronic diseases classified elsewhere; R73.9 Hyperglycemia, unspecified
CPT/HCPCS: G0378; J2274; J7060